=== PATIENT | female | born 1955 | race Caucasian/White ===

== ENCOUNTER 2018-07-13 04:19 | Emergency (ER) | END 2018-07-13 07:56 | disposition home or self-care (01) ==

== ENCOUNTER 2018-08-01 13:05 | Inpatient (IN) | END 2018-08-05 12:27 | disposition home health service (06) | DRG 392 ==

== ENCOUNTER → 2018-08-12 | Outpatient (CLI) | END | disposition home or self-care (01) ==

== ENCOUNTER → 2018-08-19 | Outpatient (CLI) | payer BC ==
[~2018-08-19] MED LIST: BIOT5000 PO; DOCU-216 PO; IOHEXOL 300MG/ML 150 ML BTL ONE; LEVO75TA5 PO; SENN-120 PO; SOD CHLORIDE 0.9% 100 ML ONE
== END | disposition home or self-care (01) ==
LOC: C/S 12:22
PROVIDERS: ATTEND Internal Medicine Infectious Disease
DX: K57.92 Diverticulitis of intestine, part unspecified, without perforation or abscess without bleeding (principal); D17.71 Benign lipomatous neoplasm of kidney
CPT/HCPCS: 71045; 74177; 75984; Q9967

== ENCOUNTER 2018-11-29 08:13 | Inpatient (IN) | payer BC ==
[2018-11-29] VITALS (12 sets, daily range): BP systolic 94–157; BP diastolic 42–75; PULSE 68–101; RESP 12–19; Ht 167.6 cm; Wt 62.1 kg
[~2018-11-29] VITALS: Ht 167.6 cm; Wt 62.1 kg
[~2018-11-29 08:13] MED LIST changes: +DESFLURANE 15 MIN ONE; +EPHEDrine SULFATE 50 MG/5 ML SYG ONE; -IOHEXOL 300MG/ML 150 ML BTL ONE; +PHENYLephrine (100 MCG/ML) 10ML SYG ONE; -SOD CHLORIDE 0.9% 100 ML ONE
[2018-11-29] MEDS ORDERED: LACTATED RINGER'S 1,000 ML IV SCH (10:30)
--- NOTE | 2018-11-29 11:29 | PREAC ---
Date/Time of Note Date/Time of Note DATE: 11/29/18 TIME: 11:28 Anesthesia Eval and Record Evaluation Time Pre-Procedure Interview DATE: 11/29/18 TIME: 11:28 Age 63 Sex female NPO: 8 hrs Preoperative diagnosis colon mass Planned procedure Lap colectomy Past Medical History Past Medical History: Includes Endo: Hypothyroid Surgery & Anesthesia Issues No known issue Meds Anticoagulation: No Beta Lester within 24 hr: No Reason Beta Letser not given: Pt. not on B-Lester Reported Medications Levothyroxine Sodium* (Levothyroxine Sodium*) 75 Mcg Tablet, 75 MCG PO BEFORE BREAKFAST, #30 TAB 07/13/18 Discontinued Reported Medications Biotin (Biotin) 5,000 Mcg Tab.rapdis, 5000 MCG PO DAILY 08/01/18 Discontinued Scripts Sennosides* (Senna Lax*) 8.6 Mg Tablet, 1 TAB PO DAILY, #60 TAB Prov:MICHAEL COLON 08/05/18 Docusate Sodium (Dok) 100 Mg Capsule, 100 MG PO DAILY, #60 CAP Prov:MICHAEL COLON 08/05/18 Current Medications Lactated Ringer's 1,000 ml @ 30 mls/hr Q24H IV ; Start 11/29/18 at 10:30 Meds reviewed: Yes Allergies Coded Allergies: No Known Allergy (Unverified , 11/29/18) Allergies Reviewed: Yes Labs/Studies Labs Reviewed: Reviewed by anesthesiologist Blood Bank Test 11/29/18 09:35 Antibody Screen NEGATIVE Blood Type A POSITIVE test: Negative Studies: ECG Pre-procedure Exam Last vitals Vital Signs Date Temp Pulse Resp B/P (MAP) Pulse Ox O2 O2 Flow FiO2 Time Delivery Rate 11/29/18 97.7 89 16 110/57 98 Room Air 08:59 (74) Airway: Adequate mouth opening, Adequate thyromental dist Mallampati: Mallampati II Teeth: Normal Lung: Normal Heart: Normal ASA Physical Status ASA physical status: 2 Emergency: None Planned Anesthetic General/MAC: ETT Neuraxial: Epidural Nerve block: TAP (bilateral) Planned Pain Management Epidural, Sub-arachniod narcotics Pre-operative Attestations Prior to commencing anesthesia and surgery, the patient was re-evaluated, there was verification of: *The patient's identity *The results of appropriate recent lab work and preoperative vital signs *The above evaluation not changing prior to induction *Anesthetic plan, risk benefits, alternative and complications discussed with patient/family; questions answered; patient/family understands, accepts and wishes to proceed. ALONDRA LIRIANO Nov 29, 2018 11:29
[2018-11-29] MEDS ORDERED: ONDANSETRON 4 MG INJ IV PRN ×2 (11:30→19:00)
[2018-11-29] MEDS ORDERED: ALBUTEROL 0.083% (NEB) 2.5 MG/3 ML AMP HHN PRN ×2 (11:30→19:00)
[2018-11-29] MEDS ORDERED: DIPHENHYDRAMINE 50 MG INJ IV PRN ×2 (11:30→19:00)
[2018-11-29] MEDS ORDERED: METOCLOPRAMIDE 10 MG INJ IV PRN (11:30)
[2018-11-29] MEDS ORDERED: FENTAnyl 50 MCG/ML VIAL IV PRN ×5 (11:30→19:00)
[2018-11-29] MEDS ORDERED: HYDROmorphONE 1 MG/5 ML IV SYRINGE IV PRN ×3 (11:30)
[2018-11-29] MEDS ORDERED: MEPERIDINE 25 MG INJ IV PRN (11:30)
[2018-11-29] MEDS ORDERED: MIDAZOLAM 1 MG/ML 2 ML INJ ONE (11:50)
[2018-11-29] MEDS ORDERED: ROPIVACAINE 0.2% 20 ML VIAL ONE (11:50)
--- NOTE | 2018-11-29 11:50 | HPN ---
Date/Time of Note Date/Time of Note DATE: 11/29/18 TIME: 11:49 Interval H&P Admission Note Pt. seen H&P reviewed: No system changes Stool yellowish after golytely Has martinez currently Min abdominal pain since difficulty evacuating stools SHEILA FLOYD MD Nov 29, 2018 11:50
[2018-11-29] MEDS ORDERED: PHENYLephrine (100 MCG/ML) 10ML SYG ONE (12:38)
[2018-11-29] MEDS ORDERED: metroNIDAZOLE 500 MG/NS (PMX) 100 ML IVPB ONE (12:49)
[2018-11-29] MEDS ORDERED: CEFAZOLIN 1 GM INJ ONE (12:49)
[2018-11-29] MEDS ORDERED: ROCURONIUM 50 MG INJ ONE (13:13)
[2018-11-29] MEDS ORDERED: SUCCINYLCHOLINE CHLORIDE 100 MG/5 ML SYG IV ONE (13:13)
[2018-11-29] MEDS ORDERED: PROPOFOL 20 ML ONE (13:13)
[2018-11-29] MEDS ORDERED: LIDOCAINE 100 MG SYRINGE ONE (13:13)
[2018-11-29] MEDS ORDERED: BUPIVACAINE 0.5% (SDV) 30 ML INJ ONE (13:17)
[2018-11-29] MEDS ORDERED: LIDOCAINE 1%/EPI (1:100,000) (MDV) 20 ML ONE (13:17)
[2018-11-29] MEDS ORDERED: morphine SULFATE/PF (10 MG/10 ML) INJ ONE (13:20)
[2018-11-29] MEDS ORDERED: METHYLENE BLUE 50 MG/10 ML AMPUL ONE (15:43)
[2018-11-29] MEDS ORDERED: NA BICARBONATE 8.4% 50 ML SYG ONE (16:45)
[2018-11-29] MEDS ORDERED: ALBUMIN HUMAN 5% 250 ML ONE ×2 (16:47→17:20)
[2018-11-29] MEDS ORDERED: SUGAMMADEX SODIUM 200 MG/2 ML VIAL IV ONE (17:52)
[2018-11-29] MEDS ORDERED: FLUMAZENIL 0.5 MG INJ ONE (18:17)
[2018-11-29] MEDS ORDERED: LORAZEPAM 2 MG INJ IV PRN (19:00)
[2018-11-29] MEDS ORDERED: morphine 2 MG INJ IV PRN (19:00)
[2018-11-29] MEDS ORDERED: HYDROmorphONE 0.5 MG/0.5 ML SYG IV PRN ×4 (19:00)
[2018-11-29] MEDS ORDERED: metroNIDAZOLE 500 MG/NS (PMX) 100 ML IVPB SCH (19:00)
[2018-11-29] MEDS ORDERED: IPRATROPIUM (NEB) 0.5 MG/2.5 ML AMP HHN PRN (19:00)
[2018-11-29] MEDS ORDERED: ALBUMIN HUMAN 5% 250 ML IV PRN (19:00)
[2018-11-29] MEDS ORDERED: KETOROLAC 30 MG INJ IV PRN (19:00)
[2018-11-29] MEDS ORDERED: ATROPINE 1 MG/10 ML SYRINGE IV PRN (19:00)
[2018-11-29] MEDS ORDERED: hydrALAzine 20 MG INJ IV PRN (19:00)
[2018-11-29] MEDS ORDERED: CEFAZOLIN 2 GM/50 ML (PMX) 50 ML IVPB SCH (19:00)
[2018-11-29] MEDS ORDERED: LABETALOL HCL 20MG INJ IV PRN (19:00)
[2018-11-29] MEDS ORDERED: MAGNESIUM SULFATE 2 GM/50 ML 50 ML IVPB ONE (19:30)
[2018-11-29] MEDS: D5W-0.45 NACL + KCL 20 MEQ 1,000 ML IV SCH (19:30)
[2018-11-29] MEDS: PROPOFOL 100 ML IV SCH (19:31)
--- NOTE | 2018-11-29 19:42 | OPR ---
Date/Time of Note Date/Time of Note DATE: 11/29/18 TIME: 19:24 Operative Report Free Text/Dictation Preoperative Diagnosis 1. 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 Intraoperative hypotension and decreased urine output Operation/Procedure Performed 1. Laparoscopic sigmoid colectomy 2. Laparoscopic splenic mobilization 3. Laparoscopic retroperitoneal exploration 4. Rigid sigmoidoscopy 5. Esophagogastroduodenoscopy 6. Local anesthetic injection, [address] 7. Laparoscopic guided bilateral transversus abdominis plane block Surgeon: Sheila Ortiz MD Lithograph Printer: Uyen Lyon NP Intraoperative consultation: Pepe Barros MD Anesthesia Type: general + local + regional Anesthesiologist: Eyal Khan MD Estimated Blood Loss: 300 ml's Transfusion: None Fluids: 5 L crystalloid + 500 mL's of 5% albumin Urine output: Total 350 mL's Specimen: 1. Colon with suture proximal Grafts/Implants: None Tubes/Drains: 18 [place] Jose Complications: Hypotension and decreased urine output Pt Condition Post Procedure: Guarded Disposition: ICU intubated Indications 63-year-old female with sigmoid stricture due to recurrent diverticulitis. She is having partial obstruction. She is here for sigmoid colectomy. Risks include but are not limited to bleeding, infection, abscess, seroma, leak, damage to intestines or any intra-abdominal/intrapelvic structures, hernia formation, fistula, Chronic pain, need for re-operations or further surgeries, RI, stroke, PE, DVT, pneumonia, organ failures, or even . Procedure Description: Patient was brought into the operating room, placed supine on the operating table, SCDs were placed, right arm was tucked, all pressure points were well- padded, preoperative antibiotics administered, and after induction of anesthesia, patient was placed in the lithotomy. Frye was inserted. Patient was then prepped and draped in usual sterile fashion, and timeout was performed. Incision was made in the right upper quadrant, and using an Optiview port and 5 mm 0 scope abdomen was safely entered and insufflated to 15 mmHg with CO2. There was a small penetration into the right upper quadrant retroperitoneum due to her thin status which was initially explored no active bleeding was iden tified. No other injuries were also identified. Laparoscopy was performed and no injuries were identified. Sigmoid colon and upper rectum were stuck to the lateral wall. Under direct visualization another 5 mm port was placed in the right lower quadrant a 12 mm port was placed in the right lower lateral quadrant. Eventually a 5 mm port was placed in the left abdomen. Patient was placed in Trendelenburg and left side up. Using LigaSure and scissor colon was mobilized off of the left lateral wall in the avascular plane fully mobilizing the left colon, the sigmoid and the upper rectum. The medial mesentery was opened and the left colon, sigmoid and the upper rectum beyond the peritoneal reflection going beyond the stricture posteriorly. Healthy colon proximal and distal to the were identified and subsequently transected with [place] 60 blue staplers. The mesentery was sequentially taken using LigaSure with complete hemostasis. The ureters bilaterally were fully identified and preserved throughout the operation. Suture was placed on the proximal colon. The 12 mm port site was switched to GelPort with an Rogelio medium. The resected colon was exteriorized and sent to pathology. Abdomen was reinsufflated with CO2. Mobilization of the splenic flexure was performed to allow sufficient colon to reach into the pelvis. This was done by mobilizing the left colon off of the spleen. Distal descending colon and upper rectum were approximated using 2-0 silk sutures multiple segments [id number] fashion. Colotomies were performed and [place] 60 blue load stapler was used to create an anastomosis between the 2 segments. Crotch stitch was applied. At the opening in the colon was closed with 2 firings of blue load [place] staplers. The anastomosis was widely patent. Proximal colon was clamped, rigid sigmoidoscopy was performed identifying intact staple line. Leak test was performed with saline in the pelvis with distention of the colon without any bubbles identified. Rigid sigmoidoscopy did not identify any active bleeding from the staple line. The staple line was intact. At this point patient started becoming hypotensive with decreased urine output. Our concern was if there is active bleeding. However no pooling of blood was identified. I investigated the pelvis and all 4 quadrants. There was minimal bleeding from small mucosal tear in the pelvis which was controlled with pressur e and FloSeal. The right and left gutters were investigated and no pulling of blood was identified. There is no retroperitoneal hematoma identified on either side. Mid abdomen was investigated and once again there was no retroperitoneal hematoma. Small bowel on either side was mobilized to investigate between the colon and the small bowel and no hematomas were identified. Splenic area was investigated there was some minimal oozing which was controlled with LigaSure and eventually FloSeal. There was no significant amount of blood in this area. The right upper quadrant was investigated and there was bruising into the retroperitoneum at this site. Gastrohepatic ligament was opened and the transverse colon was mobilized inferiorly. The stomach and duodenum were identified there was a small hematoma lateral to the duodenum. This area was explored irrigated there was no active bleeding. Transverse colon was mobilized superiorly and the mesentery was opened at this site to explore the retroperitoneum further no active bleeding or significant hematoma was identified. Intraoperative consultation was obtained from another general puente rgeon and he explored that these areas with me as well and agreed that there is no need for further conversion to open exploration since were able to adequately and satisfactorily explore other quadrants without identifying any bleeding. Esophagogastroduodenoscopy was performed to further investigated duodenum intraluminally. No injuries were seen. No perforation. No hematoma. Air was suctioned out from the duodenum stomach and esophagus while the EGD was removed. After aggressive fluid resuscitation and calcium administration by anesthesia patient's vitals improved. Decision was made to terminate the operation. Rogelio retractor was removed wound was irrigated and the fascial defect was closed with interrupted 0-Vicryl in a [id number] manner. Ports and CO2 were removed under direct visualization, wounds were fully irrigated, and skin was closed in subcuticular fashion using 4-0 Monocryl. The right lower quadrant incision was closed in multiple layers. After the fascial closer there was an interrupted subcutaneous 2-0 Vicryl closures followed by 4-0 Monocryl subcuticular. Dermabond was applied. All counts were correct and the end of the operation 2. Plan was to extubate patient however she was not waking up sufficiently and therefore decision was made to keep her intubated and transferred to ICU. SHEILA ORTIZ MD Nov 29, 2018 19:42
[2018-11-29] MEDS ORDERED: IOHEXOL 100 ML ONE (19:54)
[2018-11-29] MEDS ORDERED: SOD CHLORIDE 0.9% 100 ML ONE (19:54)
[2018-11-29] MEDS ORDERED: IOHEXOL 350MG/ML 50 ML BTL ONE (19:54)
--- NOTE | 2018-11-29 20:29 | OPR ---
Date/Time of Note Date/Time of Note DATE: 11/29/18 TIME: 20:25 Operative Report Free Text/Dictation Preoperative Diagnosis: Need for central venous access for IV access and better monitor Postoperative Diagnosis: Need for central venous access for IV access and better monitoring Operation Performed: 1. Right internal jugular central venous catheter insertion 2. Local anesthetic injection, 92416 3. Ultrasound guidance and interpretation Surgeon: SHEILA FLOYD MD Anesthesia: other (Local) Estimated Blood Loss: 0 - 10 ml's Specimens: None Tubes/Drains: Triple-lumen central line Complications: None Pt Condition Post Procedure: stable Disposition: ICU Indications: Patient status post surgery and hypotensive in need of improved IV access Risks, benefits, alternatives were fully reviewed with and daughter including bleeding, hematoma, damage to neurovascular bundle, damage to the lungs (pneumothorax) Damage to the heart, hemothorax, infection, DVT, PE, air embolism, pneumonia, ME, stroke, PE, arrhythmia, need for urgent procedures or operations, . Operative\Procedure Findings: Ultrasound findings: Ultrasound identified the internal jugular vein anterolateral to the carotid and compressible. Using the ultrasound the needle was directly placed into the vein under visualization and then the wire was placed which was confirmed in both transverse and longitudinal planes. Procedure Description: Patient was placed in Trendelenburg in own bed, all pressure points were well- padded, her right neck were prepped and draped in usual sterile fashion and timeout was performed. Local anesthetic was infiltrated at the right neck. Using the ultrasound the neck structures were identified. The IJ is anterolateral to the carotid. The IJ is also compressible compared to the carotid. Using the ultrasound and an 18-gauge needle, vein was accessed under direct visualization and a wire was placed. The wire placement in the IJ was confirmed using the ultrasound in longitudinal and transverse planes. Using Seldinger technique the catheter was placed over the wire into the IJ and SVC. All 3 ports easily draw back dark nonpulsatile blood and easily flushed with saline. Breath sounds and sats maintained. Postoperative chest x-ray is pending. SHEILA FLOYD MD Nov 29, 2018 20:29
--- NOTE | 2018-11-29 20:46 | PAC ---
Date/Time of Note Date/Time of Note DATE: 11/29/18 TIME: 20:46 Post-Anesthesia Notes Post-Anesthesia Note Last documented vital signs Vital Signs Date Temp Pulse Resp B/P (MAP) Pulse Ox O2 O2 Flow FiO2 Time Delivery Rate 11/29/18 98.7 19:12 11/29/18 89 16 110/57 98 Room Air 08:59 (74) Activity: WNL Respiratory function: WNL Cardiovascular function: WNL Mental status: Baseline Pain reasonably controlled: Yes Hydration appropriate: Yes Nausea/Vomiting absent: Yes ALONDRA LIRIANO Nov 29, 2018 20:46
[2018-11-29] MEDS ORDERED: FENTAnyl (DRIP) 1000 mcg/100mL 100 ML IV PRN (21:00)
--- NOTE | 2018-11-29 22:28 | HP ---
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 Please see operative report for full operative details. CT of the chest abdomen and pelvis postop shows signs of gastritis/colitis. Mild pneumoperitoneum. Patient did receive intraoperative fluids and calcium g iven patient's hypotension. At the current time patient is having adequate urine output, will continue to monitor this. Patient is noted to have bands on repeat CBC. Currently on cefazolin and metronidazole, will switch this to meropenem for broader coverage. We will also obtain blood cultures x2 though of note patient is already currently on antibiotics. We will also obtain a urinalysis. Drains in place draining serosanguinous material. #2 acute ventilatory dependent respiratory failure. Patient was lethargic postop was not able to be extubated. At the current time will maintain the p atient on ventilatory support. Serial ABGs. #3 Bandemia: Concern for possible underlying infection vs stress from surgery. Patient was restarted on antibiotics, at the current time we will switch the patient to meropenem. Blood cultures and urinalysis have been ordered. Continue to monitor for any signs of fever. #4 metabolic acidosis: Likely multifactorial secondary surgery, infection, o ther. Patient did receive IV fluid resuscitation intraoperatively. Patient does have bands as well on CBC. Currently on antibiotics. Await culture results. Optimize perfusion status. Will monitor closely. #5 normocytic anemia: No signs of any overt intraoperative bleeding. Will monitor CBC closely. Will check iron stores #6 DVT GI prophylaxis: SCDs, Protonix Further treatment strategy will be implemented as per the clinical course Greater than 45 minutes of critical care time was spent on the care and management this patient. Result Diagram: 11/29/18194811/29/181948 Results 24hrs Laboratory Tests Test 11/29/18 16:30 11/29/18 16:42 11/29/18 17:10 11/29/18 17:19 White Blood 16.2 #H Count Red Blood Count 3.76 L Hemoglobin 11.4 L Hematocrit 35.7 L Mean Corpuscular 94.9 Volume Mean Corpuscular 30.3 Hemoglobin Mean Corpuscular 31.9 L Hemoglobin Brenda nt Red Cell 12.8 Distribution Width Platelet Count 138 #L Mean Platelet 11.2 H Volume Immature 0.400 Granulocytes % Neutrophils % 81.9 H Lymphocytes % 9.9 L Monocytes % 7.2 Eosinophils % 0.2 Basophils % 0.4 Nucleated Red 0.0 Blood Cells % Immature 0.070 H Granulocytes # Neutrophils # 13.3 H Lymphocytes # 1.6 Monocytes # 1.2 H Eosinophils # 0.0 Basophils # 0.1 Nucleated Red 0.0 Blood Cells # CBC Results 1 *H Faxed/Phoned Blood Gas Blood arterial Blood arterial Specimen Source Arterial Blood 11/29/2018 4:30: 11/29/2018 5:19: Date Drawn 00 PM 59 PM Arterial Blood 7.090 *L 7.392 pH (Temp corrected) Arterial Blood 57.3 H 30.1 L pCO2 (Temp correct) Arterial Blood 508.7 H 553.1 H pO2 (Temp corrected) Arterial Blood 17.7 L 18.2 L HCO3 Arterial Blood -13.0 L -6.3 L Base Excess Arterial Blood 99.6 H 99.3 H Oxygen Saturatio n Donald Test N/A N/A Arterial Blood A-Line A-Line Gas Puncture Site Arterial 0.3 0.2 Blood Carboxyhem oglobin Arterial Blood 0.5 0.4 Methemoglobin Blood Gas A-a O2 153.4 H 134.8 H Differential Oxyhemoglobin 98.8 98.7 Percent Blood Gas 34.4 35.0 Temperature Blood Gas 10.0 25.0 Respiration Rate Blood Gas Actual 10 25 Respiration Rate Blood Gas VENT - AC VENT - AC Modality FiO2 100.0 100.0 Blood Gas Tidal 500.0 475.0 Volume Blood Gas Low 5.0 0 PEEP Setting Blood Gas DR. ORTIZ Critical Value Read Back Blood Gas Sharri Harrell Notified Whom Blood Gas 11/29/2018 4:45: 11/29/2018 5:28: Notified Time 00 PM 08 PM Sodium Level 139 Potassium Level 4.1 Chloride Level 112 H Carbon Dioxide 17 L Level Anion Gap 10 Blood Urea 11 Nitrogen Creatinine 0.62 Est Glomerular > 60 Filtrat Rate mL/min Glucose Level 95 Lactic Acid 1.4 Level Calcium Level 7.7 L Phosphorus Level 4.5 Magnesium Level 1.7 Total Bilirubin 0.2 Direct Bilirubin 0.00 Indirect 0.2 Bilirubin Aspartate Amino 21 Transf (AST/SGOT ) Alanine 32 Aminotransferase (ALT/SGPT) Alkaline 40 L Phosphatase Troponin I < 0.012 Total Protein 4.7 L Albumin 2.8 L Globulin 1.90 Albumin/Globulin 1.47 Ratio Amylase Level 52 Lipase 65 Test 11/29/18 17:45 11/29/18 19:49 Platelet Count 97 #L Prothrombin Time 15.1 H Prothrombin Time 1.2 Ratio INR 1.18 International Normalized Ratio Activated 31.5 Partial Thrombop last Time Thrombin Time 16.7 D-Dimer 2197.07 H D-Dimer Comment White Blood 9.7 # Count Red Blood Count 3.62 L Hemoglobin 10.8 L Hematocrit 34.0 L Mean Corpuscular 93.9 Volume Mean Corpuscular 29.8 Hemoglobin Mean Corpuscular 31.8 L Hemoglobin Brenda nt Red Cell 12.8 Distribution Width Mean Platelet 10.6 H Volume Immature 0.300 Granulocytes % Neutrophils % Segmented 79 H Neutrophils % (Manual) Band Neutrophils 13 H % (Manual) Lymphocytes % Lymphocytes % 4 L (Manual) Reactive 1 H Lymphocytes % (Manual) Monocytes % Monocytes % 3 (Manual) Eosinophils % Basophils % Nucleated Red 0.0 Blood Cells % Immature 0.030 Granulocytes # Neutrophils # Neutrophils # 7.8 H (Manual) Band Neutrophils 1.2 H # Lymphocytes 0.3 L (Manual) Lymphocytes # Reactive 0.0 Lymphocytes # Monocytes # Monocytes # 0.2 L (Manual) Eosinophils # Basophils # Nucleated Red Blood Cells # Platelet DECREASED Estimate Sodium Level 139 Potassium Level 4.0 Chloride Level 111 H Carbon Dioxide 17 L Level Anion Gap 11 Blood Urea 10 Nitrogen Creatinine 0.62 Est Glomerular > 60 Filtrat Rate mL/min Glucose Level 125 Calcium Level 8.9 Total Bilirubin 0.4 Direct Bilirubin 0.00 Indirect 0.4 Bilirubin Aspartate Amino 24 Transf (AST/SGOT ) Alanine 20 Aminotransferase (ALT/SGPT) Alkaline 43 Phosphatase Total Protein 5.3 L Albumin 3.3 Globulin 2.00 Albumin/Globulin 1.65 Ratio HPI/ROS Admit Date/Time Admit Date/Time Nov 29, 2018 at 08:13 Hx of Present Illness Chief complaint: Elective sigmoid colectomy The following history was obtained from the general surgeon, the RN, and from the patient's electronic medical record as I was not able to get history from t he patient as she was intubated. This is a 63-year-old female who was brought in on an elective basis to have a laparoscopic sigmoid colectomy given her history of sigmoid stricture secondary to recurrent diverticulitis. Patient was taken to the operating room by the general surgeon Dr. Ortiz and had a laparoscopic sigmoid colectomy, laparoscopic splenic mobilization, laparoscopic retroperitoneal exploration, esophageal gastroduodenoscopy. Please see the operative report for full details. During the procedure the patient was noted to be hypotensive and had decreased urine output. Patient did receive intraoperative fluids as well as calcium. Exploration during the surgery did not show any signs of major bleeding. Again please see the report for further details. Patient currently r emains intubated postoperatively. She does have a central line. She has produced approximately 300 cc of dilute urine postoperatively. She is currently on cefazolin as well as metronidazole. Allergies: NKDA medications: Levothyroxine ROS Subjective hx not possible: pt critical status (intubated) PMH/Family/Social Past Medical History Recurrent diverticulitis, hypothyroidism, unable to obtain further history given patient critical status Medications Current Medications Lactated Ringer's 1,000 ml @ 30 mls/hr Q24H IV ; Start 11/29/18 at 10:30 Morphine Sulfate (morphine) 2 mg ICU RECOVERY PRN IV .MILD PAIN LEVEL 1-3; Start 11/29/18 at 19:00; Stop 11/30/18 at 01:00 Hydromorphone HCl (Dilaudid) 0.2 mg ICU RECOVERY PRN IV MILD PAIN LEVEL 1-3; Start 11/29/18 at 19:00; Stop 11/30/18 at 01:00 Hydromorphone HCl (Dilaudid) 0.4 mg ICU RECOVERY PRN IV MODERATE PAIN LEVEL 4-6; Start 11/29/18 at 19:00; Stop 11/30/18 at 01:00 Hydromorphone HCl (Dilaudid) 0.6 mg ICU RECOVERY PRN IV SEVERE PAIN LEVEL 7-10; Start 11/29/18 at 19:00; Stop 11/30/18 at 01:00 Fentanyl (Sublimaze) 25 mcg ICU RECOVERY PRN IV MILD PAIN LEVEL 1-3; Start 11/29/18 at 19:00; Stop 11/30/18 at 01:00 Fentanyl (Sublimaze) 50 mcg ICU RECOVERY PRN IV MODERATE PAIN LEVEL 4-6; Start 11/29/18 at 19:00; Stop 11/30/18 at 01:00 Fentanyl (Sublimaze) 75 mcg ICU RECOVERY PRN IV SEVERE PAIN LEVEL 7-10; Start 11/29/18 at 19:00; Stop 11/30/18 at 01:00 Ketorolac Tromethamine (Toradol) 30 mg ICU RECOVERY PRN IV FOR PAIN AFTER IV NARCOTIC MED; Start 11/29/18 at 19:00; Stop 11/30/18 at 01:00 Ondansetron HCl (Zofran Inj) 4 mg ICU RECOVERY PRN IV NAUSEA/VOMITING; Start 11/29/18 at 19:00; Stop 11/30/18 at 01:00 Labetalol HCl (Labetalol) 5 mg ICU RECOVERY PRN IV HIGH BLOOD PRESSURE; Start 11/29/18 at 19:00; Stop 11/30/18 at 01:00 Hydralazine HCl (Apresoline) 5 mg ICU RECOVERY PRN IV HIGH BLOOD PRESSURE; Star t 11/29/18 at 19:00; Stop 11/30/18 at 01:00 Albumin Human 250 ml @ 750 mls/hr ICU RECOVERY PRN IV BLOOD PRESSURE SUPPORT; Start 11/29/18 at 19:00; Stop 11/30/18 at 01:00 Atropine Sulfate (Atropine (Syringe)) 1 mg ICU RECOVERY PRN IV DECREASED HEART RATE; Start 11/29/18 at 19:00; Stop 11/30/18 at 01:00 Albuterol (Proventil 0.083% (Neb)) 2.5 mg ICU RECOVERY PRN HHN .WHEEZING; Start 11/29/18 at 19:00; Stop 11/30/18 at 01:00 Ipratropium [place] (Atrovent 0.02% (Neb)) 0.5 mg ICU RECOVERY PRN HHN .WHE EZING; Start 11/29/18 at 19:00; Stop 11/30/18 at 01:00 Diphenhydramine HCl (Benadryl) 25 mg ICU RECOVERY PRN IV .PRURITUS; Start 11/29/18 at 19:00; Stop 11/30/18 at 01:00 Lorazepam (Ativan) 1 mg ICU RECOVERY PRN IV .ANXIETY; Start 11/29/18 at 19:00; Stop 11/30/18 at 01:00 Propofol 100 ml @ 1.863 mls/ hr Q12H IV Last administered on 11/29/18at 19:31; Admin Dose 1.863 MLS/HR; Start 11/29/18 at 19:30 Cefazolin Sodium/ Dextrose 50 ml @ 100 mls/hr Q8H IVPB Last administered on 11/29/18at 20:42; Admin Dose 100 MLS/HR; Start 11/29/18 at 19:00; Stop 11/30/18 at 18:59 Metronidazole 100 ml @ 100 mls/hr Q8H IVPB Last administered on 11/29/18at 20:43; Admin Dose 100 MLS/HR; Start 11/29/18 at 19:00; Stop 11/30/18 at 18:59 Hydromorphone HCl (Dilaudid) 0.5 mg Q2H PRN IV PAIN LEVEL 1-5; Start 11/29/18 at 19:00 Ondansetron HCl (Zofran Inj) 4 mg Q6H PRN IV NAUSEA AND/OR VOMITING; Start 11/29/18 at 19:00 Pantoprazole (Protonix Iv) 40 mg DAILY@06 IV ; Start 11/30/18 at 06:00 Potassium Chloride/Dextrose/ Sod Cl 1,000 ml @ 100 mls/hr Q10H IV ; Start 11/29/18 at 18:56 Hydromorphone HCl (Dilaudid) 1 mg Q2H PRN IV pain 6-10; Start 11/29/18 at 19:00 Fentanyl 100 ml @ 2.5 mls/hr TITRATE PRN IV RASS -2 TO -3 Last administered on 11/29/18at 21:54; Admin Dose 2.5 MLS/HR; Start 11/29/18 at 21:00 Coded Allergies: No Known Allergy (Unverified , 11/29/18) Past Surgical History Postop sigmoid colectomy, unable to obtain further history given patient critical status Family History Significant Family History: no pertinent family hx Social History unable to obtain further history given patient critical status Smoking Status: Never smoker Exam/Review of Systems Vital Signs Vitals Vital Signs Date Temp Pulse Resp B/P (MAP) Pulse Ox O2 O2 Flow FiO2 Time Delivery Rate 11/29/18 91 17 100 40 21:49 11/29/18 98.7 19:12 11/29/18 110/57 Room Air 08:59 (74) Exam Exam General: Intubated, sedated HEENT: Atraumatic, normocephalic. The pupils are equal, round and reactive to light. Neck: Supple with full range of motion. No rigidity or meningismus Chest: Nontender Lungs: Clear to auscultation bilaterally no crackles rales or wheezing Heart: Normal S1-S2, Regular rhythm and rate. No murmur, S3, or S4 Abdomen: Soft , nontender, nondistended , bowel sounds are present. No guarding no rebound tenderness , No masses or organomegaly. No costovertebral temporal angle mass Genitourinary: Frye catheter with approximately 300 cc of dilute urine Extremities: Normal to inspection, no edema no cyanosis Neurologic: Intubated, currently sedated. Further neurological examination limited given patient's sedation Additional Comments PROCEDURE: CT Abdomen and pelvis with contrast. CLINICAL INDICATION: Abdominal pain, intraoperative hypotension. TECHNIQUE: CT scan of the abdomen and pelvis with contrast was performed on a multi-detector high-resolution CT scanner. The patient was scanned following the uncomplicated administration of 60 cc of Omnipaque 350 intravenous contrast. Coronal and sagittal reformatted images were obtained from the axial source images. Images were reviewed on a high-resolution PACS workstation. DICOM images are available. One or more of the following dose reduction techniques were used: - Automated exposure control. - Adjustment of the mA and/or kV according to patient size. - Use of iterative reconstruction technique. Exam CTD/vol = 12.11 mGy. Total exam DLP = 746.74 mGy-cm. COMPARISON: 08/19/2018. FINDINGS: Evaluation of the lung bases demonstrates mild bibasilar atelectasis and small pleural effusions. There is moderate interstitial emphysema within bilateral chest and abdominal wall and extending to the pelvis. There is a nasogastric tube extending to the stomach. Abdomen: The liver is normal in size. There is no focal mass or dilatation of the biliary tree. There is mild periportal edema. The gallbladder is not distended. The spleen, pancreas and bilateral adrenal glands are within normal limits. Bilateral kidneys are normal in size with symmetric enhancement. There is a fat containing lesion within the posterior mid right kidney measuring 1.6 x 1.1 cm. There is a fat containing lesion within the lower pole of the left kidney measuring 0.5 cm. There is no hydronephrosis or hydroureter. There is no retroperitoneal adenopathy. The abdominal aorta is of normal caliber with mild scattered atherosclerotic calcifications. There is mild pneumoperitoneum consistent with recent surgery. There is diffuse intra-abdominal stranding and mild free fluid. There is a left-sided drainage catheter extending to the right abdomen. There is mild diffuse thickening of the stomach, small bowel and large bowel. The patient is status post sigmoidectomy with anastomotic sutures seen within the left lower quadrant. There is no bowel obstruction. A normal appendix is identified. There is no diverticulosis or diverticulitis. Pelvis: The bladder contains a Frye catheter. The uterus and adnexa are within normal limits. There is moderate stranding and mild free fluid. There is no significant pelvic adenopathy. Evaluation of the osseous structures demonstrates no suspicious lytic or blastic lesion. IMPRESSION: Moderate diffuse interstitial emphysema throughout the chest, abdomen and pelv is. Mild diffuse thickening of the stomach, small bowel and large bowel represent a nonspecific gastritis and enterocolitis. Diffuse intra-abdominal stranding and mild free fluid. Moderate pelvic stranding and mild free fluid. Mild pneumoperitoneum consistent with recent surgery. Left-sided drainage catheter extending to the right abdomen. Mild bibasilar atelectasis and small pleural effusions. Bilateral small renal angiomyolipomas. Mild vascular calcification reflective of atherosclerosis. A call report was made to Dr. Ortiz at 09:55 p.m. .Todd Sampson MD, MD Date Time Electronically viewed and signed by .Todd Sampson MD, MD on 11/29/2018 22:08 .T/ CC: SHEILA ORTIZ MD [id number] PROCEDURE: CT angiogram of the chest with contrast. CLINICAL INDICATION: Chest pain, elevated D-dimer. TECHNIQUE: CT angiogram of the chest was obtained using a multi-detector high-resolution CT. Contiguous axial images were obtained during the dynamic injection of 90 cc of Omnipaque 350 intravenous contrast. Coronal and sagittal reformatted images were obtained. 3-D reformatted images were also obtained. Images were reviewed on a PACS workstation. DICOM images are available. One or more of the following dose reduction techniques were used: - Automated exposure control. - Adjustment of the mA and/or kV according to patient size. - Use of iterative reconstruction technique. Exam CTD/vol = 9.51 mGy. Total exam DLP = 355.04 mGy-cm. COMPARISON: None. FINDINGS: The main pulmonary artery followed to the segmental divisions are well opacified. There is no filling defect or evidence of pulmonary embolism. The heart is normal in size. There is no pericardial thickening or effusion. The aorta is of normal course and caliber without evidence of aneurysm or dissection. There is an endotracheal tube 8.5 cm above the tamiko. There is a nasogastric tube extending to the stomach. There is a right IJ central venous catheter extending to the SVC. There are is moderate interstitial emphysema within bilateral lower neck and chest wall extending to the upper abdomen. The visualized thyroid is unremarkable. There are no enlarged axillary lymph nodes. There are no enlarged mediastinal or hilar lymph nodes by CT criteria. There is mild bibasilar atelectasis and small pleural effusions. There is no pneumothorax. Limited evaluation of the upper abdomen demonstrates mild free air within the right upper abdomen. IMPRESSION: No evidence of pulmonary embolism or aortic dissection. Extensive interstitial emphysema within bilateral lower neck and chest wall extending to the upper abdomen. Mild bibasilar atelectasis and small pleural effusions. Superiorly positioned endotracheal tube. Further advancement by 4 cm is recommended. Mild pneumoperitoneum consistent with recent surgery. Please refer to CT abdomen and pelvis done same day for further details. A call report was made to Dr. Ortiz at 09:55 p.m. .Todd Sampson MD, MD Date Time Electronically viewed and signed by .Todd Sampson MD, MD on 11/29/2018 21:58 .T/ CC: SHEILA ORTIZ MD [id number] PROCEDURE: XR Chest. CLINICAL INDICATION: Ng tube placement TECHNIQUE: Single portable view of the chest was obtained COMPARISON: 08/19/2018 FINDINGS: There is a NG tube within the stomach. Heart mediastinum are unremarkable. Visualized lungs are clear. Bilateral chest and abdominal wall subcutaneous emphysema. IMPRESSION: New NG tube within the stomach Bilateral chest and abdominal wall subcutaneous emphysema. RPTAT: [facility] Physician [place] Date Time Electronically viewed and signed by Carlos Enrique Zayas Physician on 11/29/2018 20:52 ME/ CC: SHEILA ORTIZ MD [id number] PROCEDURE: XR Chest. CLINICAL INDICATION: Line placement TECHNIQUE: Single portable view of the chest was obtained COMPARISON: Today FINDINGS: Right central line tip overlies the SVC/RA junction. Heart, mediastinum and lungs are unchanged. No acute osseous abnormality. IMPRESSION: No pneumothorax. New line in satisfactory position. Stable subcutaneous emphysema in the bilateral chest and abdomen. RPTAT: [facility] Physician [place] Date Time Electronically viewed and signed by Carlos Enrique Zayas Physician on 11/29/2018 21:33 ME/ CC: MARISOL PÉREZ MD, [facility] [phone] [address] Nov 29, 2018 22:28
[2018-11-29] MEDS: ALBUMIN HUMAN 25% 100 ML IV SCH ×2 (23:00→23:57)
[2018-11-29] MEDS: MEROPENEM 1 GM/50ML(PMX) 50 ML IVPB SCH (23:55)
[2018-11-30] VITALS (71 sets, daily range): BP systolic 36–130; BP diastolic 26–68; PULSE 69–103; RESP 12–26
[2018-11-30] MEDS: PROPOFOL 100 ML IV SCH (00:20)
[2018-11-30] MEDS ORDERED: SOD CHLORIDE 0.9% 1,000 ML IV ONE ×2 (02:30→07:00)
[2018-11-30] MEDS: D5W-0.45 NACL + KCL 20 MEQ 1,000 ML IV SCH ×2 (04:56→13:28)
[2018-11-30] MEDS: MEROPENEM 1 GM/50ML(PMX) 50 ML IVPB SCH ×3 (05:41→22:19)
[2018-11-30] MEDS: LEVOTHYROXINE 100 MCG VIAL IV SCH (05:41)
[2018-11-30] MEDS: PANTOPRAZOLE 40 MG INJ IV SCH (05:41)
--- NOTE | 2018-11-30 09:40 | PN ---
Date/Time of Note Date/Time of Note DATE: 11/30/18 TIME: 09:33 Assessment/Plan VTE Prophylaxis Risk score (from Ns)>0 risk: 7 SCD applied (from [facility] [place] Yes Pharmacological prophylaxis: NA/contraindicated Pharm contraindication: surgical contra Lines/Catheters IV C[facility]ter Type (from [facility] Central Line Central line still needed: Yes Urinary Cath still in place: Yes Reason Cath still needed: other (indicate) (intubated) Assessment/Plan Assessment/Plan 63 yo woman with history of hypothyroidism and recurrent diverticulitis admitted after scheduled sigmoid colectomy. 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 Please see operative report for full operative details. - CT of the chest abdomen and pelvis postop shows signs of gastritis/colitis. Mild pneumoperitoneum which is expected. - Patient did receive intraoperative fluids and calcium given patient's hypotension, now normotensive off pressors. - Currently on postoperative meropenem. # acute ventilatory dependent respiratory failure. - Patient was lethargic postop was not able to be extubated. - Now awake breathing well; anticipate extubation later today. # Bandemia: - Expected stress response after major surgery - Currently on postoperative antibiotics. # normocytic anemia: No signs of any overt intraoperative bleeding. Will monitor CBC closely. Will check iron stores # DVT GI prophylaxis: SCDs, Protonix Greater than 45 minutes of critical care time was spent on the care and management this patient. Result Diagram: 11/30/18 0430 11/30/18 0430 Subjective 24 Hr Interval Summary Free Text/Dictation No acute overnight events. This morning, patient is intubated off sedation, breathing well on CPAP trial. Also off pressors. at bedside, discussed plan of care with him. Exam/Review of Systems Exam Vitals Vital Signs Date Temp Pulse Resp B/P (MAP) Pulse Ox O2 O2 Flow FiO2 Time Delivery Rate 11/30/18 74 08:00 11/30/18 16 85/51 (62) 100 Room Air 07:00 11/30/18 40 05:22 11/30/18 97.2 04:00 Intake and Output 11/29/18 11/29/18 11/30/18 1515:00 23:00 07:00 IntakeIntake Total 5964.626 ml 925.3 ml OutputOutput Total 1510 ml 840 ml BalanceBalance 4454.626 ml 85.3 ml Exam General: Thin woman well developed intubated in no acute distress. HEENT: Atraumatic, normocephalic. The pupils are equal, round and reactive to light. Neck: Supple with full range of motion. No rigidity or meningismus Chest: Nontender Lungs: Mechanical breath sounds equal bilaterally. Heart: Normal S1-S2, Regular rhythm and rate. No murmur, S3, or S4 Abdomen: Midline lap incisions clean and dry. Very tender to mild palpation. Nondistended. Genitourinary: Frye catheter with clear yellow urine Extremities: Normal to inspection, no edema no cyanosis Neurologic: Intubated; but awake, alert, moving all extremities, following commands. Slow deep breaths on ventilator. Results Results 24hrs Laboratory Tests Test 11/29/18 16:30 11/29/18 16:42 11/29/18 17:10 11/29/18 17:19 White Blood 16.2 #H Count Red Blood Count 3.76 L Hemoglobin 11.4 L Hematocrit 35.7 L Mean 94.9 Corpuscular Volume Mean 30.3 Corpuscular Hemoglobin Mean 31.9 L Corpuscular Hemoglobin Conc ent Red Cell 12.8 Distribution Width Platelet Count 138 #L Mean Platelet 11.2 H Volume Immature 0.400 Granulocytes % Neutrophils % 81.9 H Lymphocytes % 9.9 L Monocytes % 7.2 Eosinophils % 0.2 Basophils % 0.4 Nucleated Red 0.0 Blood Cells % Immature 0.070 H Granulocytes # Neutrophils # 13.3 H Lymphocytes # 1.6 Monocytes # 1.2 H Eosinophils # 0.0 Basophils # 0.1 Nucleated Red 0.0 Blood Cells # CBC Results 1 *H Faxed/Phoned Blood Gas Blood arterial Blood Specimen arterial Source Arterial Blood 11/29/2018 4:30: 11/29/2018 5:19 Date Drawn 00 PM :59 PM Arterial Blood 7.090 *L 7.392 pH (Temp corrected ) Arterial Blood 57.3 H 30.1 L pCO2 (Temp correct) Arterial Blood 508.7 H 553.1 H pO2 (Temp corrected ) Arterial Blood 17.7 L 18.2 L HCO3 Arterial Blood -13.0 L -6.3 L Base Excess Arterial Blood 99.6 H 99.3 H Oxygen Saturati on Donald Test N/A N/A Arterial Blood A-Line A-Line Gas Puncture Site Arterial 0.3 0.2 Blood Carboxyhe moglobin Arterial Blood 0.5 0.4 Methemoglobin Blood Gas A-a 153.4 H 134.8 H O2 Differential Oxyhemoglobin 98.8 98.7 Percent Blood Gas 34.4 35.0 Temperature Blood Gas 10.0 25.0 Respiration Rate Blood Gas 10 25 Actual Respiration Rat e Blood Gas VENT - AC VENT - AC Modality FiO2 100.0 100.0 Blood Gas Tidal 500.0 475.0 Volume Blood Gas Low 5.0 0 PEEP Setting Blood Gas DR. FLOYD Critical Value Read Back Blood Gas Sharri Harrell Notified Whom Blood Gas 11/29/2018 4:45: 11/29/2018 5:28 Notified Time 00 PM :08 PM Sodium Level 139 Potassium Level 4.1 Chloride Level 112 H Carbon Dioxide 17 L Level Anion Gap 10 Blood Urea 11 Nitrogen Creatinine 0.62 Est Glomerular > 60 Filtrat Rate mL/min Glucose Level 95 Lactic Acid 1.4 Level Calcium Level 7.7 L Phosphorus 4.5 Level Magnesium Level 1.7 Total Bilirubin 0.2 Direct 0.00 Bilirubin Indirect 0.2 Bilirubin Aspartate Amino 21 Transf (AST/SGO T) Alanine 32 Aminotransferas e (ALT/SGPT) Alkaline 40 L Phosphatase Troponin I < 0.012 Total Protein 4.7 L Albumin 2.8 L Globulin 1.90 Albumin/Globuli 1.47 n Ratio Amylase Level 52 Lipase 65 Test 11/29/18 17:45 11/29/18 19:49 11/29/18 22:17 11/29/18 23:33 Platelet Count 97 #L Prothrombin 15.1 H Time Prothrombin 1.2 Time Ratio INR 1.18 International Normalized Rati o Activated 31.5 Partial Thrombo plast Time Thrombin Time 16.7 D-Dimer 2197.07 H D-Dimer Comment White Blood 9.7 # Count Red Blood Count 3.62 L Hemoglobin 10.8 L 10.5 L Hematocrit 34.0 L 32.4 L Mean 93.9 Corpuscular Volume Mean 29.8 Corpuscular Hemoglobin Mean 31.8 L Corpuscular Hemoglobin Conc ent Red Cell 12.8 Distribution Width Mean Platelet 10.6 H Volume Immature 0.300 Granulocytes % Neutrophils % Segmented 79 H Neutrophils % (Manual) Band 13 H Neutrophils % (Manual) Lymphocytes % Lymphocytes % 4 L (Manual) Reactive 1 H Lymphocytes % (Manual) Monocytes % Monocytes % 3 (Manual) Eosinophils % Basophils % Nucleated Red 0.0 Blood Cells % Immature 0.030 Granulocytes # Neutrophils # Neutrophils # 7.8 H (Manual) Band 1.2 H Neutrophils # Lymphocytes 0.3 L (Manual) Lymphocytes # Reactive 0.0 Lymphocytes # Monocytes # Monocytes # 0.2 L (Manual) Eosinophils # Basophils # Nucleated Red Blood Cells # Platelet DECREASED Estimate Sodium Level 139 Potassium Level 4.0 Chloride Level 111 H Carbon Dioxide 17 L Level Anion Gap 11 Blood Urea 10 Nitrogen Creatinine 0.62 Est Glomerular > 60 Filtrat Rate mL/min Glucose Level 125 Calcium Level 8.9 Total Bilirubin 0.4 Direct 0.00 Bilirubin Indirect 0.4 Bilirubin Aspartate Amino 24 Transf (AST/SGO T) Alanine 20 Aminotransferas e (ALT/SGPT) Alkaline 43 Phosphatase Total Protein 5.3 L Albumin 3.3 Globulin 2.00 Albumin/Globuli 1.65 n Ratio Blood Gas Blood Specimen arterial Source Arterial Blood 11/29/2018 8:38 Date Drawn :12 PM Arterial Blood 7.223 *L pH (Temp corrected ) Arterial Blood 44.7 pCO2 (Temp correct) Arterial Blood 504.9 H pO2 (Temp corrected ) Arterial Blood 18.0 L HCO3 Arterial Blood -9.3 L Base Excess Arterial Blood 99.3 H Oxygen Saturati on Donald Test N/A Arterial Blood A-Line Gas Puncture Site Arterial 0.1 Blood Carboxyhe moglobin Arterial Blood 0.4 Methemoglobin Blood Gas A-a 163.4 H O2 Differential Oxyhemoglobin 98.8 Percent Blood Gas 37.0 Temperature Blood Gas 12.0 Respiration Rate Blood Gas 12 Actual Respiration Rat e Blood Gas VENT - AC Modality FiO2 100.0 Blood Gas Tidal 470.0 Volume Blood Gas Low 5.0 PEEP Setting Blood Gas N [facility] Critical Value Read Back Blood Gas Robert [facility] Notified Whom Blood Gas 11/29/2018 8:44 Notified Time :48 PM Test 11/30/18 00:15 11/30/18 00:19 11/30/18 04:30 11/30/18 05:00 Urine Color STRAW Urine Clarity CLEAR Urine pH 5.0 Urine Specific 1.059 H [place] Urine Ketones 2+ H Urine Nitrite NEGATIVE Urine Bilirubin NEGATIVE Urine NEGATIVE Urobilinogen Urine Leukocyte NEGATIVE Esterase Urine 9 H Microscopic RBC Urine 1 Microscopic WBC Urine Mucus FEW A Urine 2+ H Hemoglobin Urine Glucose 1+ H Urine Total NEGATIVE Protein Troponin I < 0.012 < 0.012 White Blood 7.4 # Count Red Blood Count 3.13 L Hemoglobin 9.6 L Hematocrit 28.3 L Mean 90.4 Corpuscular Volume Mean 30.7 Corpuscular Hemoglobin Mean 33.9 Corpuscular Hemoglobin Conc ent Red Cell 12.8 Distribution Width Platelet Count 108 L Mean Platelet 10.9 H Volume Immature 0.400 Granulocytes % Neutrophils % 88.9 H Lymphocytes % 5.0 L Monocytes % 5.4 Eosinophils % 0.0 Basophils % 0.3 Nucleated Red 0.0 Blood Cells % Immature 0.030 Granulocytes # Neutrophils # 6.6 Lymphocytes # 0.4 L Monocytes # 0.4 Eosinophils # 0.0 Basophils # 0.0 Nucleated Red 0.0 Blood Cells # Sodium Level 137 Potassium Level 4.4 Chloride Level 107 Carbon Dioxide 21 Level Anion Gap 9 Blood Urea 9 Nitrogen Creatinine 0.57 Est Glomerular > 60 Filtrat Rate mL/min Glucose Level 212 Lactic Acid 2.4 *H Level Calcium Level 8.5 Total Bilirubin 0.2 Direct 0.00 Bilirubin Indirect 0.2 Bilirubin Aspartate Amino 22 Transf (AST/SGO T) Alanine 24 Aminotransferas e (ALT/SGPT) Alkaline 28 L Phosphatase Total Protein 4.8 L Albumin 2.9 L Globulin 1.90 Albumin/Globuli 1.52 n Ratio Amylase Level 49 Lipase 39 Blood Gas Blood Specimen arterial Source Arterial Blood 11/30/2018 4:45 Date Drawn :37 AM Arterial Blood 7.404 pH (Temp corrected ) Arterial Blood 33.0 L pCO2 (Temp correct) Arterial Blood 188.9 H pO2 (Temp corrected ) Arterial Blood 20.2 L HCO3 Arterial Blood -3.9 L Base Excess Arterial Blood 98.5 H Oxygen Saturati on Donald Test N/A Arterial Blood A-Line Gas Puncture Site Arterial 0.1 Blood Carboxyhe moglobin Arterial Blood 0.5 Methemoglobin Blood Gas A-a 58.4 H O2 Differential Oxyhemoglobin 97.9 Percent Blood Gas 37.0 Temperature Blood Gas 16.0 Respiration Rate Blood Gas 16 Actual Respiration Rat e Blood Gas VENT - AC Modality FiO2 40.0 Blood Gas Tidal 470.0 Volume Blood Gas Low 5.0 PEEP Setting Blood Gas [facility] Notified Whom Blood Gas 11/30/2018 4:54 Notified Time :39 AM Test 11/30/18 05:09 Lab Scanned REFERENCE LAB Report Medications Medication Current Medications Lactated Ringer's 1,000 ml @ 30 mls/hr Q24H IV ; Start 11/29/18 at 10:30 Propofol 100 ml @ 1.863 mls/ hr Q12H IV Last administered on 11/30/18at 00:20; Admin Dose 7.452 MLS/HR; Start 11/29/18 at 19:30 Hydromorphone HCl (Dilaudid) 0.5 mg Q2H PRN IV PAIN LEVEL 1-5; Start 11/29/18 at 19:00 Ondansetron HCl (Zofran Inj) 4 mg Q6H PRN IV NAUSEA AND/OR VOMITING; Start 11/29/18 at 19:00 Pantoprazole (Protonix Iv) 40 mg DAILY@06 IV Last administered on 11/30/18at 0 5:41; Admin Dose 40 MG; Start 11/30/18 at 06:00 Potassium Chloride/Dextrose/ Sod Cl 1,000 ml @ 100 mls/hr Q10H IV Last administered on 11/29/18at 19:30; Admin Dose 100 MLS/HR; Start 11/29/18 at 18:56 Hydromorphone HCl (Dilaudid) 1 mg Q2H PRN IV pain 6-10; Start 11/29/18 at 19:00 Fentanyl 100 ml @ 2.5 mls/hr TITRATE PRN IV RASS -2 TO -3 Last administered on 11/29/18at 21:54; Admin Dose 2.5 MLS/HR; Start 11/29/18 at 21:00 Levothyroxine Sodium (Synthroid Iv) 37.5 mcg DAILY@06 IV Last administered on 11/30/18at 05:41; Admin Dose 37.5 MCG; Start 11/30/18 at 06:00 Meropenem/Sodium Chloride 50 ml @ 100 mls/hr Q8 IVPB Last administered on 11/30/18at 05:41; Admin Dose 100 MLS/HR; Start 11/29/18 at 23:00 LAURA SWANSON MD Nov 30, 2018 09:40
--- NOTE | 2018-11-30 09:46 | CONS ---
Assessment/Plan Assessment/Plan Assessment/Plan (Daily) Chest x-ray is totally clear. Patient is currently on CPAP pressure support of 10, 30% FiO2. Assessment and recommendations; 1. Patient admitted for elective sigmoid colon resection With postop mechanical ventilation requirement. Medically stable now. Extubated the patient. Continue current supportive care. Further recommendations per general surgeon. 35 minutes of critical care time was spent evaluating the patient. Consultation Date/Type/Reason Admit Date/Time Nov 29, 2018 at 08:13 Date of Consultation: Nov 30, 2018 Type of Consult Pulmonary/critical care Patient is a 63-year-old lady who was admitted for elective laparoscopic sigmoid colon resection due to diverticulitis. Surgery was uneventful yesterday except for mild hypotensive episode, patient could not be extubated immediately postoperatively and was transferred to ICU intubated. By the time I saw her, patient already on CPAP mode and appears completely awake and alert. Patient has remained hemodynamically stable. She complains of minimal abdominal discomfort and pain. Denies any shortness of breath. Any nausea. Past medical history; unremarkable Medications; reviewed Allergies; none Social history; noncontributory. Family history; she is , has a supportive . Occupational history; noncontributory. Review of systems; limited review of system could be obtained. Patient denies any chest pain, shortness of breath, coughing, complains of very mild abdominal pain and discomfort. Denies any nausea. General exam; elderly female, orally intubated, awake and alert. Currently in no distress. Date/Time of Note DATE: 11/30/18 TIME: 09:43 Past Medical History Home Meds Reported Medications Levothyroxine Sodium* (Levothyroxine Sodium*) 75 Mcg Tablet, 75 MCG PO BEFORE BREAKFAST, #30 TAB 07/13/18 Discontinued Reported Medications Biotin (Biotin) 5,000 Mcg Tab.rapdis, 5000 MCG PO DAILY 08/01/18 Discontinued Scripts Sennosides* (Senna Lax*) 8.6 Mg Tablet, 1 TAB PO DAILY, #60 TAB Prov:MICHAEL COLON 08/05/18 Docusate Sodium (Dok) 100 Mg Capsule, 100 MG PO DAILY, #60 CAP Prov:MICHAEL COLON 08/05/18 Medications Current Medications Lactated Ringer's 1,000 ml @ 30 mls/hr Q24H IV ; Start 11/29/18 at 10:30 Propofol 100 ml @ 1.863 mls/ hr Q12H IV Last administered on 11/30/18at 00:20; Admin Dose 7.452 MLS/HR; Start 11/29/18 at 19:30 Hydromorphone HCl (Dilaudid) 0.5 mg Q2H PRN IV PAIN LEVEL 1-5; Start 11/29/18 at 19:00 Ondansetron HCl (Zofran Inj) 4 mg Q6H PRN IV NAUSEA AND/OR VOMITING; Start 11/29/18 at 19:00 Pantoprazole (Protonix Iv) 40 mg DAILY@06 IV Last administered on 11/30/18at 05:41; Admin Dose 40 MG; Start 11/30/18 at 06:00 Potassium Chloride/Dextrose/ Sod Cl 1,000 ml @ 100 mls/hr Q10H IV Last administered on 11/29/18at 19:30; Admin Dose 100 MLS/HR; Start 11/29/18 at 18:56 Hydromorphone HCl (Dilaudid) 1 mg Q2H PRN IV pain 6-10; Start 11/29/18 at 19:00 Fentanyl 100 ml @ 2.5 mls/hr TITRATE PRN IV RASS -2 TO -3 Last administered on 11/29/18at 21:54; Admin Dose 2.5 MLS/HR; Start 11/29/18 at 21:00 Levothyroxine Sodium (Synthroid Iv) 37.5 mcg DAILY@06 IV Last administered on 11/30/18at 05:41; Admin Dose 37.5 MCG; Start 11/30/18 at 06:00 Meropenem/Sodium Chloride 50 ml @ 100 mls/hr Q8 IVPB Last administered on 11/30/18at 05:41; Admin Dose 100 MLS/HR; Start 11/29/18 at 23:00 Allergies: Coded Allergies: No Known Allergy (Unverified , 11/29/18) Social History Smoking Status: Never smoker Exam/Review of Systems Exam Vitals Vital Signs Date Temp Pulse Resp B/P (MAP) Pulse Ox O2 O2 Flow FiO2 Time Delivery Rate 11/30/18 74 08:00 11/30/18 16 85/51 (62) 100 Room Air 07:00 11/30/18 40 05:22 11/30/18 97.2 04:00 Intake and Output 11/29/18 11/29/18 11/30/18 1515:00 23:00 07:00 IntakeIntake Total 5964.626 ml 925.3 ml OutputOutput Total 1510 ml 840 ml BalanceBalance 4454.626 ml 85.3 ml Exam H EENT exam; supple neck, no JVD. No lymphadenopathy. Midline trachea. No thyromegaly. Orally intubated. Patient has fair dentition. Chest exam; clear to auscultation. S1-S2 audible, no murmurs. Regular rhythm. Abdomen exam; soft, dressing applied at laparoscopic incision sites. Bowel sounds audible. There is very minimal abdominal tenderness. Extremity exam; no peripheral edema or clubbing. Pulses 2+. [employer] exam; no focal deficit. Results Result Diagram: 11/30/18 0430 11/30/18 0430 Results 24hrs Laboratory Tests Test 11/29/18 16:30 11/29/18 16:42 11/29/18 17:10 11/29/18 17:19 White Blood 16.2 #H Count Red Blood Count 3.76 L Hemoglobin 11.4 L Hematocrit 35.7 L Mean 94.9 Corpuscular Volume Mean 30.3 Corpuscular Hemoglobin Mean 31.9 L Corpuscular Hemoglobin Conc ent Red Cell 12.8 Distribution Width Platelet Count 138 #L Mean Platelet 11.2 H Volume Immature 0.400 Granulocytes % Neutrophils % 81.9 H Lymphocytes % 9.9 L Monocytes % 7.2 Eosinophils % 0.2 Basophils % 0.4 Nucleated Red 0.0 Blood Cells % Immature 0.070 H Granulocytes # Neutrophils # 13.3 H Lymphocytes # 1.6 Monocytes # 1.2 H Eosinophils # 0.0 Basophils # 0.1 Nucleated Red 0.0 Blood Cells # CBC Results 1 *H Faxed/Phoned Blood Gas Blood arterial Blood Specimen arterial Source Arterial Blood 11/29/2018 4:30: 11/29/2018 5:19 Date Drawn 00 PM :59 PM Arterial Blood 7.090 *L 7.392 pH (Temp corrected ) Arterial Blood 57.3 H 30.1 L pCO2 (Temp correct) Arterial Blood 508.7 H 553.1 H pO2 (Temp corrected ) Arterial Blood 17.7 L 18.2 L HCO3 Arterial Blood -13.0 L -6.3 L Base Excess Arterial Blood 99.6 H 99.3 H Oxygen Saturati on Donald Test N/A N/A Arterial Blood A-Line A-Line Gas Puncture Site Arterial 0.3 0.2 Blood Carboxyhe moglobin Arterial Blood 0.5 0.4 Methemoglobin Blood Gas A-a 153.4 H 134.8 H O2 Differential Oxyhemoglobin 98.8 98.7 Percent Blood Gas 34.4 35.0 Temperature Blood Gas 10.0 25.0 Respiration Rate Blood Gas 10 25 Actual Respiration Rat e Blood Gas VENT - AC VENT - AC Modality FiO2 100.0 100.0 Blood Gas Tidal 500.0 475.0 Volume Blood Gas Low 5.0 0 PEEP Setting Blood Gas DR. FLOYD Critical Value Read Back Blood Gas Sharri Harrell Notified Whom Blood Gas 11/29/2018 4:45: 11/29/2018 5:28 Notified Time 00 PM :08 PM Sodium Level 139 Potassium Level 4.1 Chloride Level 112 H Carbon Dioxide 17 L Level Anion Gap 10 Blood Urea 11 Nitrogen Creatinine 0.62 Est Glomerular > 60 Filtrat Rate mL/min Glucose Level 95 Lactic Acid 1.4 Level Calcium Level 7.7 L Phosphorus 4.5 Level Magnesium Level 1.7 Total Bilirubin 0.2 Direct 0.00 Bilirubin Indirect 0.2 Bilirubin Aspartate Amino 21 Transf (AST/SGO T) Alanine 32 Aminotransferas e (ALT/SGPT) Alkaline 40 L Phosphatase Troponin I < 0.012 Total Protein 4.7 L Albumin 2.8 L Globulin 1.90 Albumin/Globuli 1.47 n Ratio Amylase Level 52 Lipase 65 Test 11/29/18 17:45 11/29/18 19:49 11/29/18 22:17 11/29/18 23:33 Platelet Count 97 #L Prothrombin 15.1 H Time Prothrombin 1.2 Time Ratio INR 1.18 International Normalized Rati o Activated 31.5 Partial Thrombo plast Time Thrombin Time 16.7 D-Dimer 2197.07 H D-Dimer Comment White Blood 9.7 # Count Red Blood Count 3.62 L Hemoglobin 10.8 L 10.5 L Hematocrit 34.0 L 32.4 L Mean 93.9 Corpuscular Volume Mean 29.8 Corpuscular Hemoglobin Mean 31.8 L Corpuscular Hemoglobin Conc ent Red Cell 12.8 Distribution Width Mean Platelet 10.6 H Volume Immature 0.300 Granulocytes % Neutrophils % Segmented 79 H Neutrophils % (Manual) Band 13 H Neutrophils % (Manual) Lymphocytes % Lymphocytes % 4 L (Manual) Reactive 1 H Lymphocytes % (Manual) Monocytes % Monocytes % 3 (Manual) Eosinophils % Basophils % Nucleated Red 0.0 Blood Cells % Immature 0.030 Granulocytes # Neutrophils # Neutrophils # 7.8 H (Manual) Band 1.2 H Neutrophils # Lymphocytes 0.3 L (Manual) Lymphocytes # Reactive 0.0 Lymphocytes # Monocytes # Monocytes # 0.2 L (Manual) Eosinophils # Basophils # Nucleated Red Blood Cells # Platelet DECREASED Estimate Sodium Level 139 Potassium Level 4.0 Chloride Level 111 H Carbon Dioxide 17 L Level Anion Gap 11 Blood Urea 10 Nitrogen Creatinine 0.62 Est Glomerular > 60 Filtrat Rate mL/min Glucose Level 125 Calcium Level 8.9 Total Bilirubin 0.4 Direct 0.00 Bilirubin Indirect 0.4 Bilirubin Aspartate Amino 24 Transf (AST/SGO T) Alanine 20 Aminotransferas e (ALT/SGPT) Alkaline 43 Phosphatase Total Protein 5.3 L Albumin 3.3 Globulin 2.00 Albumin/Globuli 1.65 n Ratio Blood Gas Blood Specimen arterial Source Arterial Blood 11/29/2018 8:38 Date Drawn :12 PM Arterial Blood 7.223 *L pH (Temp corrected ) Arterial Blood 44.7 pCO2 (Temp correct) Arterial Blood 504.9 H pO2 (Temp corrected ) Arterial Blood 18.0 L HCO3 Arterial Blood -9.3 L Base Excess Arterial Blood 99.3 H Oxygen Saturati on Donald Test N/A Arterial Blood A-Line Gas Puncture Site Arterial 0.1 Blood Carboxyhe moglobin Arterial Blood 0.4 Methemoglobin Blood Gas A-a 163.4 H O2 Differential Oxyhemoglobin 98.8 Percent Blood Gas 37.0 Temperature Blood Gas 12.0 Respiration Rate Blood Gas 12 Actual Respiration Rat e Blood Gas VENT - AC Modality FiO2 100.0 Blood Gas Tidal 470.0 Volume Blood Gas Low 5.0 PEEP Setting Blood Gas Chris WRIGHT RN Critical Value Read Back Blood Gas Robert [facility] Notified Whom Blood Gas 11/29/2018 8:44 Notified Time :48 PM Test 11/30/18 00:15 11/30/18 00:19 11/30/18 04:30 11/30/18 05:00 Urine Color STRAW Urine Clarity CLEAR Urine pH 5.0 Urine Specific 1.059 H [place] Urine Ketones 2+ H Urine Nitrite NEGATIVE Urine Bilirubin NEGATIVE Urine NEGATIVE Urobilinogen Urine Leukocyte NEGATIVE Esterase Urine 9 H Microscopic RBC Urine 1 Microscopic WBC Urine Mucus FEW A Urine 2+ H Hemoglobin Urine Glucose 1+ H Urine Total NEGATIVE Protein Troponin I < 0.012 < 0.012 White Blood 7.4 # Count Red Blood Count 3.13 L Hemoglobin 9.6 L Hematocrit 28.3 L Mean 90.4 Corpuscular Volume Mean 30.7 Corpuscular Hemoglobin Mean 33.9 Corpuscular Hemoglobin Conc ent Red Cell 12.8 Distribution Width Platelet Count 108 L Mean Platelet 10.9 H Volume Immature 0.400 Granulocytes % Neutrophils % 88.9 H Lymphocytes % 5.0 L Monocytes % 5.4 Eosinophils % 0.0 Basophils % 0.3 Nucleated Red 0.0 Blood Cells % Immature 0.030 Granulocytes # Neutrophils # 6.6 Lymphocytes # 0.4 L Monocytes # 0.4 Eosinophils # 0.0 Basophils # 0.0 Nucleated Red 0.0 Blood Cells # Sodium Level 137 Potassium Level 4.4 Chloride Level 107 Carbon Dioxide 21 Level Anion Gap 9 Blood Urea 9 Nitrogen Creatinine 0.57 Est Glomerular > 60 Filtrat Rate mL/min Glucose Level 212 Lactic Acid 2.4 *H Level Calcium Level 8.5 Total Bilirubin 0.2 Direct 0.00 Bilirubin Indirect 0.2 Bilirubin Aspartate Amino 22 Transf (AST/SGO T) Alanine 24 Aminotransferas e (ALT/SGPT) Alkaline 28 L Phosphatase Total Protein 4.8 L Albumin 2.9 L Globulin 1.90 Albumin/Globuli 1.52 n Ratio Amylase Level 49 Lipase 39 Blood Gas Blood Specimen arterial Source Arterial Blood 11/30/2018 4:45 Date Drawn :37 AM Arterial Blood 7.404 pH (Temp corrected ) Arterial Blood 33.0 L pCO2 (Temp correct) Arterial Blood 188.9 H pO2 (Temp corrected ) Arterial Blood 20.2 L HCO3 Arterial Blood -3.9 L Base Excess Arterial Blood 98.5 H Oxygen Saturati on Donald Test N/A Arterial Blood A-Line Gas Puncture Site Arterial 0.1 Blood Carboxyhe moglobin Arterial Blood 0.5 Methemoglobin Blood Gas A-a 58.4 H O2 Differential Oxyhemoglobin 97.9 Percent Blood Gas 37.0 Temperature Blood Gas 16.0 Respiration Rate Blood Gas 16 Actual Respiration Rat e Blood Gas VENT - AC Modality FiO2 40.0 Blood Gas Tidal 470.0 Volume Blood Gas Low 5.0 PEEP Setting Blood Gas [facility]. Notified Whom Blood Gas 11/30/2018 4:54 Notified Time :39 AM Test 11/30/18 05:09 Lab Scanned REFERENCE LAB Report Medications Medication Current Medications Lactated Ringer's 1,000 ml @ 30 mls/hr Q24H IV ; Start 11/29/18 at 10:30 Propofol 100 ml @ 1.863 mls/ hr Q12H IV Last administered on 11/30/18at 00:20; Admin Dose 7.452 MLS/HR; Start 11/29/18 at 19:30 Hydromorphone HCl (Dilaudid) 0.5 mg Q2H PRN IV PAIN LEVEL 1-5; Start 11/29/18 at 19:00 Ondansetron HCl (Zofran Inj) 4 mg Q6H PRN IV NAUSEA AND/OR VOMITING; Start 11/29/18 at 19:00 Pantoprazole (Protonix Iv) 40 mg DAILY@06 IV Last administered on 11/30/18 05:41; Admin Dose 40 MG; Start 11/30/18 at 06:00 Potassium Chloride/Dextrose/ Sod Cl 1,000 ml @ 100 mls/hr Q10H IV Last administered on 11/29/18 19:30; Admin Dose 100 MLS/HR; Start 11/29/18 at 18:56 Hydromorphone HCl (Dilaudid) 1 mg Q2H PRN IV pain 6-10; Start 11/29/18 at 19:00 Fentanyl 100 ml @ 2.5 mls/hr TITRATE PRN IV RASS -2 TO -3 Last administered on 11/29/18at 21:54; Admin Dose 2.5 MLS/HR; Start 11/29/18 at 21:00 Levothyroxine Sodium (Synthroid Iv) 37.5 mcg DAILY@06 IV Last administered on 11/30/18 05:41; Admin Dose 37.5 MCG; Start 11/30/18 at 06:00 Meropenem/Sodium Chloride 50 ml @ 100 mls/hr Q8 IVPB Last administered on 05:41; Admin Dose 100 MLS/HR; Start 11/29/18 at 23:00 ROCKY MARTIN Nov 30, 2018 09:46
[2018-11-30] MEDS: HYDROmorphONE 0.5 MG/0.5 ML SYG IV PRN ×3 (11:17→20:44)
--- NOTE | 2018-11-30 11:31 | PN ---
Date/Time of Note Date/Time of Note DATE: 11/30/18 TIME: 11:20 Assessment/Plan Lines/Catheters IV Catheter Type (from [facility]): Central Line Frye in Place (from [facility]): Yes Assessment/Plan Chief Complaint/Hosp Course 1. Intraoperative hypotension, drop in u/o, and acidosis. ? Etiology (DDx: infection (persistent diverticulitis vs other), vs hypovolemia, vs electrolyte imbalance -judicious fluid management -abx -supportive 2. Lactic acidosis, ? etiology -as above 3. Anemia, ? dilutional vs bleeding. CT A C/A/P without active bleeding. Drain serosang -close monitoring 4. Diffuse bowel edema on CT ? fluid overload vs hypotensive intraop episode vs other 5. Hypoalbuminemia multifactorial -monitor and eventual diet optimization 6. Need for mechanical ventilation postoperatively since wasnt breathing sufficiently, improved and extubated 7. Hypothyroid -meds 8. Thrombocytopenia -monitor Thank you, Subjective 24 Hr Interval Summary Patient kept intubated after surgery since she wasnt waking up adequately. DDimer was elevated but CTA chest negative for PE. Troponins were negative. Hg decreased today. CT A/P without active bleeding or hematoma. Right IJ central line placed last night. No current f/c. Just extubated. Min abdominal pain. No martinez/visual or neuro changes. No sob/cp. No n/v. No cough. No sz. No bowel function. Frye intact. Labs noted. Yesterday had bandemia but none reported today > asked lab to run for today. Lactic acid slightly elevated today at 2.4. Patient with subq emphysema since surgery. Exam/Review of Systems Vital Signs Vitals Vital Signs Date Temp Pulse Resp B/P (MAP) Pulse Ox O2 O2 Flow FiO2 Time Delivery Rate 11/30/18 87 15 111/55 100 CPAP 10:30 (73) 11/30/18 98.7 08:00 11/30/18 40 05:22 Intake and Output 11/29/18 11/29/18 11/30/18 1515:00 23:00 07:00 IntakeIntake Total 5964.626 ml 925.3 ml OutputOutput Total 1510 ml 915 ml BalanceBalance 4454.626 ml 10.3 ml Exam Constitutional: alert, oriented; No distress Psych: anxiety; No confusion Head: normocephalic, atraumatic Eyes: nl conjunctiva, EOMI, PERRL; No icteric ENMT: nl external ears & nose, nl lips & teeth, mucosa pink and moist Neck: supple, non-tender, jvd (min) Respiratory: normal air movement; No congested cough, No labored breathing, No wheezing Cardiovascular: regular rate and rhythm; No edema Gastrointestinal: soft, distended (min), tender (min); No rebound or guarding Musculoskeletal: nl extremities to inspection; No joint tenderness Extremities: normal pulses; No calf tenderness, No cyanosis Neurological: nl mental status, nl speech, nl strength Skin: nl turgor, other (subq emphysema); No rash or lesions, No diaphoresis Lymph: nl lymph nodes Results Result Diagram: 11/30/180 11/30/18 0430 SHEILA FLOYD MD Nov 30, 2018 11:31
[2018-12-01] VITALS (29 sets, daily range): BP systolic 98–128; BP diastolic 48–76; PULSE 70–101; RESP 11–21
[2018-12-01] MEDS: D5W-0.45 NACL + KCL 20 MEQ 1,000 ML IV SCH ×3 (00:06→22:54)
[2018-12-01] MEDS: ONDANSETRON 4 MG INJ IV PRN ×3 (02:45→22:46)
[2018-12-01] MEDS: HYDROmorphONE 0.5 MG/0.5 ML SYG IV PRN ×4 (04:39→18:45)
[2018-12-01] MEDS: PANTOPRAZOLE 40 MG INJ IV SCH (05:53)
[2018-12-01] MEDS: LEVOTHYROXINE 100 MCG VIAL IV SCH (05:53)
[2018-12-01] MEDS: MEROPENEM 1 GM/50ML(PMX) 50 ML IVPB SCH ×3 (05:56→22:21)
--- NOTE | 2018-12-01 10:11 | PN ---
Date/Time of Note Date/Time of Note DATE: 12/01/18 TIME: 10:03 Assessment/Plan Lines/Catheters IV Catheter Type (from [facility]): A Line Frye in Place (from [facility]): Yes Assessment/Plan Chief Complaint/Hosp Course 1. 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 ? Etiology (DDx: infection (persistent diverticulitis vs other), vs hypovolemia, vs electrolyte imbalance; hypertension improved= -abx -supportive -Close monitoring -IS -ambulate -ice pack to abdominal wall -N.p.o. for now; await bowel function 2. Lactic acidosis, ? etiology; normalized; bandemia improved -as above 3. Anemia, ? dilutional vs bleeding. CT A C/A/P without active bleeding. Drain serosang -close monitoring -Transfuse as needed 4. Diffuse bowel edema on CT ? fluid overload vs hypotensive intraop episode vs other 5. Hypoalbuminemia multifactorial -monitor and eventual diet optimization 6. Need for mechanical ventilation postoperatively since wasnt breathing sufficiently, improved and extubated; currently on low flow nasal cannula 7. Hypothyroid -meds 8. Thrombocytopenia -monitor 9. Hypocalcemia: Likely multifactorial -Eventual nutrition optimization -Replete as needed and monitor Thank you. Patient seen and examined in collaboration with Dr. Maxi Ortiz. Subjective 24 Hr Interval Summary Feels improved. Fever overnight. No bowel function as of yet. No chills, sob, congested cough, cp, palpitations, martinez, dizziness, nausea, vomiting, diarrhea, dysuria. Minimal abdominal pain. Exam/Review of Systems Vital Signs Vitals Vital Signs Date Temp Pulse Resp B/P (MAP) Pulse Ox O2 O2 Flow FiO2 Time Delivery Rate 12/01/18 88 14 121/60 97 Nasal 1.0 09:15 (80) Cannula 12/01/18 98.3 08:00 11/30/18 30 09:20 Intake and Output 11/30/18 11/30/18 12/01/18 1414:59 22:59 06:59 IntakeIntake Total 1668.702 ml 500 ml OutputOutput Total 690 ml 745 ml 665 ml BalanceBalance 978.702 ml -245 ml -665 ml Exam Free Text/Dictation Constitutional: alert, oriented; No distress Psych: anxiety; No confusion Head: normocephalic, atraumatic Eyes: nl conjunctiva, EOMI, PERRL; No icteric ENMT: nl external ears & nose, nl lips & teeth, mucosa pink and moist; Neck: supple, non-tender, jvd (min); right IJ Respiratory: normal air movement; No congested cough, No labored breathing, No wheezing Cardiovascular: regular rate and rhythm; No edema Gastrointestinal: soft, distended (min), tender (min); incision sites dry without drainage/bruising/discoloration; [place]: Serous sanguinous No rebound or guarding Musculoskeletal: nl extremities to inspection; No joint tenderness Extremities: normal pulses; No calf tenderness, No cyanosis Neurological: nl mental status, nl speech, nl strength Skin: nl turgor, other (subq emphysema); No rash or lesions, No diaphoresis Lymph: nl lymph nodes Results Result Diagram: 12/01/1839912/01/18399 VALARIE BOWER NP Dec 01, 2018 10:11
--- NOTE | 2018-12-01 10:21 | CONS ---
Consult Date/Type/Reason Admit Date/Time Nov 29, 2018 at 08:13 Initial Consult Date 11/30/18 Type of Consult Pulmonary Date/Time of Note DATE: 12/01/18 TIME: 10:17 Subjective Patient extubated yesterday. Awake alert this morning still has nausea from analgesia. Still no significant bowel sounds. No respiratory distress at present. Objective Vital Signs Date Temp Pulse Resp B/P (MAP) Pulse Ox O2 O2 Flow FiO2 Time Delivery Rate 12/01/18 94 21 123/58 91 Room Air 10:00 (79) 12/01/18 1.0 09:15 12/01/18 98.3 08:00 11/30/18 30 09:20 Intake and Output 11/30/18 11/30/18 12/01/18 1515:00 23:00 07:00 IntakeIntake Total 1756.75 ml 400 ml 150 ml OutputOutput Total 665 ml 770 ml 715 ml BalanceBalance 1091.75 ml -370 ml -565 ml Exam GENERAL: VITAL SIGNS: per chart NECK: Supple. No JVD or lymphadenopathy. CARDIAC EXAM: S1, S2. No added sounds or murmurs. CHEST: clear bilaterally, No added sounds, rales or wheezes ABDOMEN: Soft, nontender. No guarding or rebound. No bowel sounds. EXTREMITIES: No cyanosis, clubbing or edema. NEUROLOGIC: Generalized weakness. No focal deficits. Vent Setting Ventilator Support Mode: CPAP, PS Fraction of Inspired Oxygen pe: 30 Positive End Expiratory Pressu: 5.0 Results/Medications Result Diagram: 12/01/18 0400 12/01/18 0400 Results 24 hrs Laboratory Tests Test 11/30/18 11:58 11/30/18 13:52 11/30/18 18:45 12/01/18 04:00 Troponin I < 0.012 < 0.012 Lactic Acid Level 0.7 White Blood Count 7.4 Red Blood Count 3.13 L Hemoglobin 9.8 L Hematocrit 28.8 L Mean Corpuscular 92.0 Volume Mean Corpuscular 31.3 Hemoglobin Mean Corpuscular 34.0 Hemoglobin Concent Red Cell 13.2 Distribution Width Platelet Count 99 L Mean Platelet Volume 11.3 H Immature 0.400 Granulocytes % Neutrophils % 86.3 H Lymphocytes % 5.0 L Monocytes % 7.6 Eosinophils % 0.4 Basophils % 0.3 Nucleated Red Blood 0.0 Cells % Immature 0.030 Granulocytes # Neutrophils # 6.4 Lymphocytes # 0.4 L Monocytes # 0.6 Eosinophils # 0.0 Basophils # 0.0 Nucleated Red Blood 0.0 Cells # Sodium Level 134 L Potassium Level 4.0 Chloride Level 104 Carbon Dioxide Level 25 Anion Gap 5 Blood Urea Nitrogen 5 L Creatinine 0.54 Est Glomerular > 60 Filtrat Rate mL/min Glucose Level 128 # Calcium Level 7.8 L Phosphorus Level 2.3 #L Magnesium Level 1.9 Medications Current Medications Lactated Ringer's 1,000 ml @ 30 mls/hr Q24H IV ; Start 11/29/18 at 10:30 Hydromorphone HCl (Dilaudid) 0.5 mg Q2H PRN IV PAIN LEVEL 1-5 Last administered on 12/01/18 08:28; Admin Dose 0.5 MG; Start 11/29/18 at 19:00 Ondansetron HCl (Zofran Inj) 4 mg Q6H PRN IV NAUSEA AND/OR VOMITING Last administered on 12/01/18 02:45; Admin Dose 4 MG; Start 11/29/18 at 19:00 Pantoprazole (Protonix Iv) 40 mg DAILY@06 IV Last administered on 12/01/18 05:53; Admin Dose 40 MG; Start 11/30/18 at 06:00 Potassium Chloride/Dextrose/ Sod Cl 1,000 ml @ 100 mls/hr Q10H IV Last administered on 12/01/18 00:06; Admin Dose 100 MLS/HR; Start 11/29/18 at 18:56 Hydromorphone HCl (Dilaudid) 1 mg Q2H PRN IV pain 6-10; Start 11/29/18 at 19:00 Levothyroxine Sodium (Synthroid Iv) 37.5 mcg DAILY@06 IV Last administered on 12/01/18 05:53; Admin Dose 37.5 MCG; Start 11/30/18 at 06:00 Meropenem/Sodium Chloride 50 ml @ 100 mls/hr Q8 IVPB Last administered on 12/01/18 05:56; Admin Dose 100 MLS/HR; Start 11/29/18 at 23:00 Potassium Phosphate 30 mm/ Sodium Chloride 260 ml @ 65 mls/hr ONCE ONCE IVPB Last administered on 4/18/19at 09:22; Admin Dose 65 MLS/HR; Start 12/01/18 at 11:00; Stop 12/01/18 at 14:59 Assessment/Plan Hospital Course (Demo Recall) Assessment 1. 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 2. S/P resp failure now extubated. Plan 1. Continue surgical post op recs 2. IS 3. Pain control 4. DVT and GI prophylaxis. cc40 mins. MARISOL PÉREZ MD[facility] Dec 01, 2018 10:21
[2018-12-01] MEDS ORDERED: POTASSIUM PHOSPHATE 30 MM in SOD CHLORIDE 0.9% 250 ML IVPB ONE (11:00)
--- NOTE | 2018-12-01 11:06 | PN ---
Date/Time of Note Date/Time of Note DATE: 12/01/18 TIME: 11:02 Assessment/Plan VTE Prophylaxis Risk score (from Ns)>0 risk: 5 [place] [facility] [place] Pharmacological prophylaxis: NA/contraindicated Pharm contraindication: surgical contra Lines/Catheters IV Catheter Type (from [facility], [place]): A Line Urinary Cath still in place: Yes Reason Cath still needed: other (indicate) (per surgery) Assessment/Plan Assessment/Plan 63 yo woman with history of hypothyroidism and recurrent diverticulitis admitted after scheduled sigmoid colectomy. 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 Please see operative report for full operative details. - CT of the chest abdomen and pelvis postop shows signs of gastritis/colitis. Mild pneumoperitoneum which is expected. - Patient did receive intraoperative fluids and calcium given patient's hypotension, now normotensive off pressors. - Currently on postoperative meropenem. - Diet advancement per surgery # acute ventilatory dependent respiratory failure. - Patient was lethargic postop was not able to be extubated. - Now awake breathing well; extubated postop day 1. # Bandemia: - Expected stress response after major surgery - Febrile postop day 1 to 101.4. May be due to atelectasis. - Currently on postoperative antibiotics. # normocytic anemia: No signs of any overt intraoperative bleeding. Will monitor CBC closely. # DVT GI prophylaxis: SCDs, Protonix Greater than 45 minutes of critical care time was spent on the care and management this patient. Result Diagram: 12/01/18 0400 12/01/18 0400 Subjective 24 Hr Interval Summary Free Text/Dictation Extubated yesterday morning. Febrile to 101.4 yesterday afternoon. Patient awake, alert. Apprehensive about eating because she's worried she'll vomit and tear her incisions; even though she denies nausea. Off pressors, breathing room air. Exam/Review of Systems Exam Vitals Vital Signs Date Temp Pulse Resp B/P (MAP) Pulse Ox O2 O2 Flow FiO2 Time Delivery Rate 12/01/18 94 21 123/58 91 Room Air 10:00 (79) 12/01/18 1.0 09:15 12/01/18 98.3 08:00 11/30/18 30 09:20 Intake and Output 411/30/18 12/01/18 1515:00 23:00 07:00 IntakeIntake Total 1756.75 ml 400 ml 150 ml OutputOutput Total 665 ml 770 ml 715 ml BalanceBalance 1091.75 ml -370 ml -565 ml Exam General: Frail appearing woman in no acute distress. HEENT: Atraumatic, normocephalic. The pupils are equal, round and reactive to light. Neck: Supple with full range of motion. No rigidity or meningismus Chest: Nontender Lungs: Clear to auscultation bilaterally, diminished lower lung sounds. Very poor incentive spirometry volumes <500 cc, deep inspiration causes pain. Heart: Normal S1-S2, Regular rhythm and rate. No murmur, S3, or S4 Abdomen: Midline lap incisions clean and dry. Tender to moderate palpation. Nondistended. Genitourinary: Frye catheter with clear yellow urine Extremities: Normal to inspection, no edema no cyanosis Results Results 24hrs Laboratory Tests Test 11/30/18 11:58 11/30/18 13:52 11/30/18 18:45 12/01/18 04:00 Troponin I < 0.012 < 0.012 Lactic Acid Level 0.7 White Blood Count 7.4 Red Blood Count 3.13 L Hemoglobin 9.8 L Hematocrit 28.8 L Mean Corpuscular 92.0 Volume Mean Corpuscular 31.3 Hemoglobin Mean Corpuscular 34.0 Hemoglobin Concent Red Cell 13.2 Distribution Width Platelet Count 99 L Mean Platelet Volume 11.3 H Immature 0.400 Granulocytes % Neutrophils % 86.3 H Lymphocytes % 5.0 L Monocytes % 7.6 Eosinophils % 0.4 Basophils % 0.3 Nucleated Red Blood 0.0 Cells % Immature 0.030 Granulocytes # Neutrophils # 6.4 Lymphocytes # 0.4 L Monocytes # 0.6 Eosinophils # 0.0 Basophils # 0.0 Nucleated Red Blood 0.0 Cells # Sodium Level 134 L Potassium Level 4.0 Chloride Level 104 Carbon Dioxide Level 25 Anion Gap 5 Blood Urea Nitrogen 5 L Creatinine 0.54 Est Glomerular > 60 Filtrat Rate mL/min Glucose Level 128 # Calcium Level 7.8 L Phosphorus Level 2.3 #L Magnesium Level 1.9 Medications Medication Current Medications Hydromorphone HCl (Dilaudid) 0.5 mg Q2H PRN IV PAIN LEVEL 1-5 Last administered on 12/01/18 08:28; Admin Dose 0.5 MG; Start 11/29/18 at 19:00 Ondansetron HCl (Zofran Inj) 4 mg Q6H PRN IV NAUSEA AND/OR VOMITING Last administered on 12/01/18at 02:45; Admin Dose 4 MG; Start 11/29/18 at 19:00 Pantoprazole (Protonix Iv) 40 mg DAILY@06 IV Last administered on 12/01/18 05:53; Admin Dose 40 MG; Start 11/30/18 at 06:00 Potassium Chloride/Dextrose/ Sod Cl 1,000 ml @ 100 mls/hr Q10H IV Last administered on 12/01/18 00:06; Admin Dose 100 MLS/HR; Start 11/29/18 at 18:56 Hydromorphone HCl (Dilaudid) 1 mg Q2H PRN IV pain 6-10; Start 11/29/18 at 19:00 Levothyroxine Sodium (Synthroid Iv) 37.5 mcg DAILY@06 IV Last administered on 12/01/18at 05:53; Admin Dose 37.5 MCG; Start 11/30/18 at 06:00 Meropenem/Sodium Chloride 50 ml @ 100 mls/hr Q8 IVPB Last administered on 12/01/18 05:56; Admin Dose 100 MLS/HR; Start 11/29/18 at 23:00 Potassium Phosphate 30 mm/ Sodium Chloride 260 ml @ 65 mls/hr ONCE ONCE IVPB Last administered on 12/01/18at 09:22; Admin Dose 65 MLS/HR; Start 12/01/18 at 11:00; Stop 12/01/18 at 14:59 LAURA SWANSON MD Dec 01, 2018 11:06
[2018-12-01] MEDS ORDERED: METOCLOPRAMIDE 10 MG INJ IV ONE (18:00)
[2018-12-01] MEDS: FAMOTIDINE 20 MG INJ IV SCH (22:17)
[2018-12-02] VITALS (12 sets, daily range): BP systolic 113–131; BP diastolic 60–63; PULSE 71–87; RESP 19–22
[2018-12-02] MEDS: ONDANSETRON 4 MG INJ IV PRN ×2 (06:23→13:05)
[2018-12-02] MEDS: LEVOTHYROXINE 100 MCG VIAL IV SCH (06:23)
[2018-12-02] MEDS: MEROPENEM 1 GM/50ML(PMX) 50 ML IVPB SCH ×3 (06:24→20:12)
[2018-12-02] MEDS: HYDROmorphONE 0.5 MG/0.5 ML SYG IV PRN ×3 (06:24→17:39)
[2018-12-02] MEDS: D5W-0.45 NACL + KCL 20 MEQ 1,000 ML IV SCH ×4 (06:56→20:12)
[2018-12-02] MEDS: FAMOTIDINE 20 MG INJ IV SCH ×2 (08:28→20:12)
[2018-12-02] MEDS: METOCLOPRAMIDE 10 MG INJ IV PRN ×2 (09:24→17:38)
--- NOTE | 2018-12-02 10:48 | PN ---
Date/Time of Note Date/Time of Note DATE: 12/02/18 TIME: 10:46 Assessment/Plan VTE Prophylaxis Risk score (from Ns)>0 risk: 3 SCD applied (from Ns): Yes Pharmacological prophylaxis: NA/contraindicated Pharm contraindication: surgical contra [facility] Central line still needed: Yes Urinary Cath still in place: Yes Reason Cath still needed: other (indicate) (postop) Assessment/Plan Assessment/Plan 63 yo woman with history of hypothyroidism and recurrent diverticulitis admitted after scheduled sigmoid colectomy. 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 Please see operative report for full operative details. - CT of the chest abdomen and pelvis postop shows signs of gastritis/colitis. Mild pneumoperitoneum which is expected. - Patient did receive intraoperative fluids and calcium given patient's hypotension, now normotensive off pressors. - Currently on postoperative meropenem. - Diet advancement per surgery # acute ventilatory dependent respiratory failure. - Patient was lethargic postop was not able to be extubated. - Now awake breathing well; extubated postop day 1. # Bandemia: - Expected stress response after major surgery - Febrile postop day 1 to 101.4. May be due to atelectasis. - Currently on postoperative antibiotics. # normocytic anemia: No signs of any overt intraoperative bleeding. Will monitor CBC closely. # DVT GI prophylaxis: SCDs, Protonix Result Diagram: 12/02/1861612/02/18616 Subjective 24 Hr Interval Summary Free Text/Dictation No acute overnight events. Continues to have significant nausea; requiring zofran and reglan ATC. Not passing gas or stool. Pain adequately controlled. Ambulating Breathing comfortably on room air. Exam/Review of Systems Exam Vitals Vital Signs Date Temp Pulse Resp B/P (MAP) Pulse Ox O2 O2 Flow FiO2 Time Delivery Rate 12/02/18 72 08:22 12/02/18 97.9 22 128/63 96 Nasal 2.0 08:14 (84) Cannula 11/30/18 30 09:20 Intake and Output 12/01/18 12/01/18 12/02/18 1515:00 23:00 07:00 IntakeIntake Total 1510 ml 1050 ml 700 ml OutputOutput Total 995 ml 10 ml 1525 ml BalanceBalance 515 ml 1040 ml -825 ml Exam General: Frail appearing woman in no acute distress. HEENT: Atraumatic, normocephalic. The pupils are equal, round and reactive to light. Neck: Supple with full range of motion. No rigidity or meningismus Chest: Nontender Lungs: Clear to auscultation bilaterally, diminished lower lung sounds. Very poor incentive spirometry volumes <500 cc, deep inspiration causes pain. Heart: Normal S1-S2, Regular rhythm and rate. No murmur, S3, or S4 Abdomen: Midline lap incisions clean and dry. Tender to moderate palpation. Nondistended. Genitourinary: Frye catheter with clear yellow urine Extremities: Normal to inspection, no edema no cyanosis Results Results 24hrs Laboratory Tests Test 12/02/18 06:17 White Blood Count 4.8 # Red Blood Count 3.20 L Hemoglobin 9.6 L Hematocrit 29.3 L Mean Corpuscular Volume 91.6 Mean Corpuscular Hemoglobin 30.0 Mean Corpuscular Hemoglobin Concent 32.8 Red Cell Distribution Width 12.4 Platelet Count 110 L Mean Platelet Volume 11.4 H Immature Granulocytes % 0.200 Neutrophils % 78.7 H Lymphocytes % 11.3 L Monocytes % 7.9 Eosinophils % 1.5 Basophils % 0.4 Nucleated Red Blood Cells % 0.0 Immature Granulocytes # 0.010 Neutrophils # 3.8 Lymphocytes # 0.5 L Monocytes # 0.4 Eosinophils # 0.1 Basophils # 0.0 Nucleated Red Blood Cells # 0.0 Sodium Level 136 Potassium Level 4.3 Chloride Level 105 Carbon Dioxide Level 28 Anion Gap 3 L Blood Urea Nitrogen 4 L Creatinine 0.53 Est Glomerular Filtrat Rate mL/min > 60 Glucose Level 127 Calcium Level 8.3 L Medications Medication Current Medications Hydromorphone HCl (Dilaudid) 0.5 mg Q2H PRN IV PAIN LEVEL 1-5 Last administered on 12/02/18at 06:24; Admin Dose 0.5 MG; Start 11/29/18 at 19:00 Ondansetron HCl (Zofran Inj) 4 mg Q6H PRN IV NAUSEA AND/OR VOMITING Last administered on 12/02/18at 06:23; Admin Dose 4 MG; Start 11/29/18 at 19:00 Potassium Chloride/Dextrose/ Sod Cl 1,000 ml @ 100 mls/hr Q10H IV Last administered on 12/02/18 10:30; Admin Dose 100 MLS/HR; Start 11/29/18 at 18:56 Hydromorphone HCl (Dilaudid) 1 mg Q2H PRN IV pain 6-10 Last administered on 12/01/18 22:17; Admin Dose 1 MG; Start 11/29/18 at 19:00 Levothyroxine Sodium (Synthroid Iv) 37.5 mcg DAILY@06 IV Last administered on 12/02/18 06:23; Admin Dose 37.5 MCG; Start 11/30/18 at 06:00 Meropenem/Sodium Chloride 50 ml @ 100 mls/hr Q8 IVPB Last administered on 12/02/18 06:24; Admin Dose 100 MLS/HR; Start 11/29/18 at 23:00 Famotidine (Pepcid Iv) 20 mg BID IV Last administered on 12/02/18 08:28; Admin Dose 20 MG; Start 12/01/18 at 21:00 Metoclopramide HCl (Reglan) 10 mg Q6H PRN IV nausea Last administered on 12/02/18 09:24; Admin Dose 10 MG; Start 12/02/18 at 09:30 LAURA SWANSON MD Dec 02, 2018 10:48
--- NOTE | 2018-12-02 12:58 | PN ---
Date/Time of Note Date/Time of Note DATE: 12/02/18 TIME: 12:55 Assessment/Plan Lines/Catheters IV Catheter Type (from [facility] Central Line En[place]or[place] in Place (from [facility]): Yes Assessment/Plan Chief Complaint/Hosp Course 1. 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 ? Etiology (DDx: infection (persistent diverticulitis vs other), vs hypovolemia, vs electrolyte imbalance; Improved -supportive -Close monitoring -IS -ambulate -ice pack to abdominal wall -N.p.o. for now; await bowel function -dc enamorado -dc central line 2. Lactic acidosis, ? etiology; normalized; bandemia improved -as above 3. Anemia, ? dilutional vs bleeding. CT A C/A/P without active bleeding. Drain serosang -close monitoring -Transfuse as needed 4. Diffuse bowel edema on CT ? fluid overload vs hypotensive intraop episode vs other 5. Hypoalbuminemia multifactorial -monitor and eventual diet optimization 6. Need for mechanical ventilation postoperatively since wasnt breathing sufficiently, improved and extubated; currently on low flow nasal cannula 7. Hypothyroid -meds 8. Thrombocytopenia -monitor 9. Hypocalcemia: Likely multifactorial -Eventual nutrition optimization -Replete as needed and monitor Thank you, Subjective 24 Hr Interval Summary No bowel function yet. No fevers, chills, sob, congested cough, cp, palpitations, martinez, dizziness, nausea, vomiting, diarrhea, dysuria. Minimal abdominal pain. Ambulating. Enamorado in. ANTONIETTA serosang. Central line in. Exam/Review of Systems Vital Signs Vitals Vital Signs Date Temp Pulse Resp B/P (MAP) Pulse Ox O2 O2 Flow FiO2 Time Delivery Rate 12/02/18 72 12:29 12/02/18 97.8 22 122/63 96 Room Air 12:08 (82) 12/02/18 2.0 08:14 11/30/18 30 09:20 Intake and Output 12/01/18 12/01/18 12/02/18 1515:00 23:00 07:00 IntakeIntake Total 1510 ml 1050 ml 700 ml OutputOutput Total 995 ml 10 ml 1525 ml BalanceBalance 515 ml 1040 ml -825 ml Exam Free Text/Dictation Constitutional: alert, oriented; No distress Psych: anxiety improved; No confusion Head: normocephalic, atraumatic Eyes: nl conjunctiva, EOMI, PERRL; No icteric ENMT: nl external ears & nose, nl lips & teeth, mucosa pink and moist; Neck: supple, non-tender, jvd (min); right IJ Respiratory: normal air movement; No congested cough, No labored breathing, No wheezing Cardiovascular: regular rate and rhythm; No edema Gastrointestinal: soft, distended (min), tender (min); incision sites dry without drainage/bruising/discoloration; [place]TON[place]ET[place]: Serous sanguinous No rebound or guarding Musculoskeletal: nl extremities to inspection; No joint tenderness Extremities: normal pulses; No calf tenderness, No cyanosis Neurological: nl mental status, nl speech, nl strength Skin: nl turgor, No rash or lesions, No diaphoresis Lymph: nl lymph nodes Results Result Diagram: 12/02/18 0617 12/02/18 0617 SHEILA FLOYD MD Dec 02, 2018 12:58
--- NOTE | 2018-12-02 13:38 | CONS ---
Consult Date/Type/Reason Admit Date/Time Nov 29, 2018 at 08:13 Initial Consult Date 11/30/18 Type of Consult Pulmonary Date/Time of Note DATE: 12/02/18 TIME: 13:34 Subjective Patient comfortable this morning. Less abdominal pain no bowel sounds yet. Remains n.p.o. Objective Vital Signs Date Temp Pulse Resp B/P (MAP) Pulse Ox O2 O2 Flow FiO2 Time Delivery Rate 12/02/18 72 12:29 12/02/18 97.8 22 122/63 96 Room Air 12:08 (82) 12/02/18 2.0 08:14 11/30/18 30 09:20 Intake and Output 12/01/18 12/01/18 12/02/18 1515:00 23:00 07:00 IntakeIntake Total 1510 ml 1050 ml 700 ml OutputOutput Total 995 ml 10 ml 1525 ml BalanceBalance 515 ml 1040 ml -825 ml Exam GENERAL: VITAL SIGNS: per chart NECK: Supple. No JVD or lymphadenopathy. CARDIAC EXAM: S1, S2. No added sounds or murmurs. CHEST: clear bilaterally, No added sounds, rales or wheezes ABDOMEN: Soft, nontender. No guarding or rebound. No bowel sounds. EXTREMITIES: No cyanosis, clubbing or edema. NEUROLOGIC: Generalized weakness. No focal deficits. Vent Setting Ventilator Support Mode: CPAP, PS Fraction of Inspired Oxygen pe: 30 Positive End Expiratory Pressu: 5.0 Results/Medications Result Diagram: 12/02/18 0617 12/02/18 0617 Results 24 hrs Laboratory Tests Test 12/02/18 06:17 White Blood Count 4.8 # Red Blood Count 3.20 L Hemoglobin 9.6 L Hematocrit 29.3 L Mean Corpuscular Volume 91.6 Mean Corpuscular Hemoglobin 30.0 Mean Corpuscular Hemoglobin Concent 32.8 Red Cell Distribution Width 12.4 Platelet Count 110 L Mean Platelet Volume 11.4 H Immature Granulocytes % 0.200 Neutrophils % 78.7 H Lymphocytes % 11.3 L Monocytes % 7.9 Eosinophils % 1.5 Basophils % 0.4 Nucleated Red Blood Cells % 0.0 Immature Granulocytes # 0.010 Neutrophils # 3.8 Lymphocytes # 0.5 L Monocytes # 0.4 Eosinophils # 0.1 Basophils # 0.0 Nucleated Red Blood Cells # 0.0 Sodium Level 136 Potassium Level 4.3 Chloride Level 105 Carbon Dioxide Level 28 Anion Gap 3 L Blood Urea Nitrogen 4 L Creatinine 0.53 Est Glomerular Filtrat Rate mL/min > 60 Glucose Level 127 Calcium Level 8.3 L Medications Current Medications Hydromorphone HCl (Dilaudid) 0.5 mg Q2H PRN IV PAIN LEVEL 1-5 Last administered on 12/02/18 13:05; Admin Dose 0.5 MG; Start 11/29/18 at 19:00 Ondansetron HCl (Zofran Inj) 4 mg Q6H PRN IV NAUSEA AND/OR VOMITING Last administered on 12/02/18 13:05; Admin Dose 4 MG; Start 11/29/18 at 19:00 Potassium Chloride/Dextrose/ Sod Cl 1,000 ml @ 100 mls/hr Q10H IV Last administered on 12/02/18 10:30; Admin Dose 100 MLS/HR; Start 11/29/18 at 18:56 Hydromorphone HCl (Dilaudid) 1 mg Q2H PRN IV pain 6-10 Last administered on 12/01/18 22:17; Admin Dose 1 MG; Start 11/29/18 at 19:00 Levothyroxine Sodium (Synthroid Iv) 37.5 mcg DAILY@06 IV Last administered on 12/02/18 06:23; Admin Dose 37.5 MCG; Start 11/30/18 at 06:00 Meropenem/Sodium Chloride 50 ml @ 100 mls/hr Q8 IVPB Last administered on 12/02/18 06:24; Admin Dose 100 MLS/HR; Start 11/29/18 at 23:00 Famotidine (Pepcid Iv) 20 mg BID IV Last administered on 12/02/18 08:28; Admin Dose 20 MG; Start 12/01/18 at 21:00 Metoclopramide HCl (Reglan) 10 mg Q6H PRN IV nausea Last administered on 12/02/18 09:24; Admin Dose 10 MG; Start 12/02/18 at 09:30 Assessment/Plan Hospital Course (Demo Recall) Assessment 1. 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 2. S/P resp failure now extubated. Plan 1. Continue surgical post op recs 2. IS 3. Pain control 4. DVT and GI prophylaxis. 5. Dc central line MARISOL PÉREZ MD, [facility] Dec 02, 2018 13:38
[2018-12-03] VITALS (10 sets, daily range): BP systolic 126–134; BP diastolic 60–84; PULSE 68–88; RESP 18–20
[2018-12-03] MEDS: D5W-0.45 NACL + KCL 20 MEQ 1,000 ML IV SCH ×2 (05:11→21:09)
[2018-12-03] MEDS: LEVOTHYROXINE 100 MCG VIAL IV SCH (05:12)
[2018-12-03] MEDS: MEROPENEM 1 GM/50ML(PMX) 50 ML IVPB SCH ×3 (05:25→21:09)
[2018-12-03] MEDS: FAMOTIDINE 20 MG INJ IV SCH ×2 (08:55→21:09)
--- NOTE | 2018-12-03 09:37 | CONS ---
Assessment/Plan Assessment/Plan Assessment/Plan (Daily) Assessment and recommendations; 1. Patient status post abdominal surgery for sigmoid resection due to diverticulitis status post colostomy. 2. Status post respiratory failure. With stable pulmonary status. 3. Apparent persistent ileus. Patient maintained on TPN. Continue current supportive care. Further recommendations per general surgeon. Will sign off. Please reconsult if needed. Thanks for the referral. Consultation Date/Type/Reason Admit Date/Time Nov 29, 2018 at 08:13 Initial Consult Date 11/30/18 Type of Consult Pulmonary/critical care Patient is a 63-year-old lady who was admitted for elective laparoscopic sigmoid colon resection due to diverticulitis. Surgery was uneventful yesterday except for mild hypotensive episode, patient could not be extubated immediately postoperatively and was transferred to ICU intubated. By the time I saw her, patient already on CPAP mode and appears completely awake and alert. Patient has remained hemodynamically stable. She complains of minimal abdominal dis comfort and pain. Denies any shortness of breath. Any nausea. Past medical history; unremarkable Medications; reviewed Allergies; none Social history; noncontributory. Family history; she is , has a supportive . Occupational history; noncontributory. Review of systems; limited review of system could be obtained. Patient denies any chest pain, shortness of breath, coughing, complains of very mild abdominal pain and discomfort. Denies any nausea. General exam; elderly female, orally intubated, awake and alert. Currently in no distress. Date/Time of Note DATE: 12/03/18 TIME: 09:35 24 HR Interval Summary Free Text/Dictation Patient's condition is stable. Denies any shortness of breath, chest pain, coughing, wheezing. Complains of minimal abdominal pain. Denies any nausea or vomiting. General exam; elderly female, awake alert, currently no distress. On room air. Exam/Review of Systems Exam Vitals Vital Signs Date Temp Pulse Resp B/P (MAP) Pulse Ox O2 O2 Flow FiO2 Time Delivery Rate 12/03/18 79 08:01 12/03/18 98.8 19 134/62 97 07:53 (86) 12/03/18 Room Air 05:00 12/03/18 2.0 00:22 11/30/18 30 09:20 Intake and Output 4/12/02/18 12/03/18 1515:00 23:00 07:00 IntakeIntake Total 1000 ml 1000 ml 0 ml OutputOutput Total 80 ml 1500 ml 18 ml BalanceBalance 920 ml -500 ml -18 ml Exam H EENT exam; supple neck, no JVD. No lymphadenopathy. Midline trachea. No thyromegaly. Patient has good dentition. No neck masses. Chest exam; clear to auscultation. S1-S2 audible, no murmurs. Regular rhythm. Abdomen exam; soft, colostomy in place. Bowel sounds audible. Surgical scar is healing well. There is very minimal abdominal tenderness. Extremity exam; no peripheral edema or clubbing. CABLE PLACER exam; no focal deficit. Results Result Diagram: 12/03/18 0642 12/03/18 0642 Results 24hrs Laboratory Tests Test 12/02/18 13:05 12/03/18 06:42 Urine Color COLORLESS Urine Clarity CLEAR Urine pH 9.0 Urine Specific [place] 1.005 Urine Ketones NEGATIVE Urine Nitrite NEGATIVE Urine Bilirubin NEGATIVE Urine Urobilinogen NEGATIVE Urine Leukocyte Esterase NEGATIVE Urine Microscopic RBC 5 Urine Microscopic WBC 1 Urine Hemoglobin 1+ H Urine Glucose NEGATIVE Urine Total Protein NEGATIVE White Blood Count 3.6 #L Red Blood Count 3.49 L Hemoglobin 10.6 L Hematocrit 31.9 L Mean Corpuscular Volume 91.4 Mean Corpuscular Hemoglobin 30.4 Mean Corpuscular Hemoglobin Concent 33.2 Red Cell Distribution Width 12.3 Platelet Count 146 # Mean Platelet Volume 11.0 H Immature Granulocytes % 0.300 Neutrophils % 73.6 Lymphocytes % 12.6 L Monocytes % 8.8 Eosinophils % 4.4 Basophils % 0.3 Nucleated Red Blood Cells % 0.0 Immature Granulocytes # 0.010 Neutrophils # 2.7 Lymphocytes # 0.5 L Monocytes # 0.3 Eosinophils # 0.2 Basophils # 0.0 Nucleated Red Blood Cells # 0.0 Sodium Level 140 Potassium Level 4.5 Chloride Level 105 Carbon Dioxide Level 29 Anion Gap 6 Blood Urea Nitrogen 4 L Creatinine 0.63 Est Glomerular Filtrat Rate mL/min > 60 Glucose Level 109 Calcium Level 8.6 Phosphorus Level 1.9 L Magnesium Level 2.2 Medications Medication Current Medications Hydromorphone HCl (Dilaudid) 0.5 mg Q2H PRN IV PAIN LEVEL 1-5 Last administered on 12/02/18at 17:39; Admin Dose 0.5 MG; Start 11/29/18 at 19:00 Ondansetron HCl (Zofran Inj) 4 mg Q6H PRN IV NAUSEA AND/OR VOMITING Last administered on 12/02/18 13:05; Admin Dose 4 MG; Start 11/29/18 at 19:00 Potassium Chloride/Dextrose/ Sod Cl 1,000 ml @ 100 mls/hr Q10H IV Last administered on 12/03/18 05:11; Admin Dose 100 MLS/HR; Start 11/29/18 at 18:56 Hydromorphone HCl (Dilaudid) 1 mg Q2H PRN IV pain 6-10 Last administered on 12/01/18 22:17; Admin Dose 1 MG; Start 11/29/18 at 19:00 Levothyroxine Sodium (Synthroid Iv) 37.5 mcg DAILY@06 IV Last administered on 12/03/18 05:12; Admin Dose 37.5 MCG; Start 11/30/18 at 06:00 Meropenem/Sodium Chloride 50 ml @ 100 mls/hr Q8 IVPB Last administered on 12/03/18 05:25; Admin Dose 100 MLS/HR; Start 11/29/18 at 23:00 Famotidine (Pepcid Iv) 20 mg BID IV Last administered on 12/03/18 08:55; Admin Dose 20 MG; Start 12/01/18 at 21:00 Metoclopramide HCl (Reglan) 10 mg Q6H PRN IV nausea Last administered on 9at 17:38; Admin Dose 10 MG; Start 12/02/18 at 09:30 ROCKY MARTIN Dec 03, 2018 09:37
--- NOTE | 2018-12-03 15:49 | PN ---
Date/Time of Note Date/Time of Note DATE: 12/03/18 TIME: 15:46 Assessment/Plan Lines/Catheters IV Catheter Type (from [facility]): Peripheral IV Frye in Place (from [facility]): Yes Assessment/Plan Chief Complaint/Hosp Course 1. 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 ? Etiology (DDx: infection (persistent diverticulitis vs other), vs hypovolemia, vs electrolyte imbalance; Improved; + flatus -supportive -Close monitoring -IS -ambulate -ice pack to abdominal wall -Clear liquids only 2. Lactic acidosis, ? etiology; normalized; bandemia improved -as above 3. Anemia, ? dilutional vs bleeding. CT A C/A/P without active bleeding. Drain serosang -close monitoring -Transfuse as needed 4. Diffuse bowel edema on CT ? fluid overload vs hypotensive intraop episode vs other 5. Hypoalbuminemia multifactorial -monitor and eventual diet optimization 6. Need for mechanical ventilation postoperatively since wasnt breathing sufficiently, improved and extubated; currently on room air>resolved 7. Hypothyroid -meds 8. Thrombocytopenia -monitor 9. Hypocalcemia: Likely multifactorial -Eventual nutrition optimization -Replete as needed and monitor Thank you. Patient seen and examined in collaboration with Dr. Maxi Ortiz. Subjective 24 Hr Interval Summary Feels much improved. + Flatus. Min temp. No abdominal pain at present. ANTONIETTA drain improved. No fevers, chills, sob, congested cough, cp, palpitations, martinez, dizziness, nausea, vomiting, diarrhea, dysuria. Exam/Review of Systems Vital Signs Vitals Vital Signs Date Temp Pulse Resp B/P (MAP) Pulse Ox O2 O2 Flow FiO2 Time Delivery Rate 12/03/18 98.2 77 18 131/60 96 15:09 (83) 12/03/18 Room Air 05:00 12/03/18 2.0 00:22 11/30/18 30 09:20 Intake and Output 12/02/18 12/02/18 12/03/18 1414:59 22:59 06:59 IntakeIntake Total 1000 ml 1000 ml 0 ml OutputOutput Total 80 ml 1500 ml 18 ml BalanceBalance 920 ml -500 ml -18 ml Exam Free Text/Dictation Constitutional: alert, oriented; No distress Psych: anxiety improved; No confusion Head: normocephalic, atraumatic Eyes: nl conjunctiva, EOMI, PERRL; No icteric ENMT: nl external ears & nose, nl lips & teeth, mucosa pink and moist; Neck: supple, non-tender, jvd (min); right IJ Respiratory: normal air movement; No congested cough, No labored breathing, No wheezing Cardiovascular: regular rate and rhythm; No edema Gastrointestinal: soft, distended (min), nontender; incision sites dry without drainage/bruising/discoloration; ANTONIETTA: Serous sanguinous No rebound or guarding Musculoskeletal: nl extremities to inspection; No joint tenderness Extremities: normal pulses; No calf tenderness, No cyanosis Neurological: nl mental status, nl speech, nl strength Skin: nl turgor, No rash or lesions, No diaphoresis Lymph: nl lymph nodes Results Result Diagram: 12/03/18 0642 12/03/18 0642 VALARIE BOWER NP Dec 03, 2018 15:49
--- NOTE | 2018-12-03 16:27 | PN ---
Date/Time of Note Date/Time of Note DATE: 12/03/18 TIME: 16:25 Assessment/Plan VTE Prophylaxis Risk score (from Ns)>0 risk: 4 SCD applied (from Ns): Yes Pharmacological prophylaxis: NA/contraindicated Pharm contraindication: surgical contra Lines/Catheters IV Catheter Type (from [facility]): Peripheral IV Urinary Cath still in place: Yes Reason Cath still needed: other (indicate) (postop) Assessment/Plan Assessment/Plan 63 yo woman with history of hypothyroidism and recurrent diverticulitis admitted after scheduled sigmoid colectomy. 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 Please see operative report for full operative details. - CT of the chest abdomen and pelvis postop shows signs of gastritis/colitis. Mild pneumoperitoneum which is expected. - Patient did receive intraoperative fluids and calcium given patient's hypotension, now normotensive off pressors. - Currently on postoperative meropenem. - Clear liquids started! Diet advancement per surgery # acute ventilatory dependent respiratory failure - resolved - Patient was lethargic postop was not able to be extubated. - Now awake breathing well; extubated postop day 1. # Bandemia - resolved - Expected stress response after major surgery - Febrile postop day 1 to 101.4. May be due to atelectasis. - Currently on postoperative antibiotics. # normocytic anemia: No signs of any overt intraoperative bleeding. Will monitor CBC closely. # DVT GI prophylaxis: SCDs, Protonix Result Diagram: 12/03/18 0642 12/03/18 0642 Subjective 24 Hr Interval Summary Free Text/Dictation Patient doing well. Nausea has resolved, no reglan or zofran at all today. Walking short distances with assistance. Passing flatus and small bowel movement. Pain adequately controlled. Exam/Review of Systems Exam Vitals Vital Signs Date Temp Pulse Resp B/P (MAP) Pulse Ox O2 O2 Flow FiO2 Time Delivery Rate 12/03/18 98.2 77 18 131/60 96 15:09 (83) 12/03/18 Room Air 05:00 12/03/18 2.0 00:22 11/30/18 30 09:20 Intake and Output 12/02/18 12/02/18 12/03/18 1515:00 23:00 07:00 IntakeIntake Total 1000 ml 1000 ml 0 ml OutputOutput Total 80 ml 1500 ml 18 ml BalanceBalance 920 ml -500 ml -18 ml Exam General: Frail appearing woman in no acute distress. HEENT: Atraumatic, normocephalic. The pupils are equal, round and reactive to light. Neck: Supple with full range of motion. No rigidity or meningismus Chest: Nontender Lungs: Clear to auscultation bilaterally, diminished lower lung sounds. Heart: Normal S1-S2, Regular rhythm and rate. No murmur, S3, or S4 Abdomen: Midline lap incisions clean and dry. Tender to moderate palpation. Nondistended. Extremities: Normal to inspection, no edema no cyanosis Results Results 24hrs Laboratory Tests Test 12/03/18 06:42 White Blood Count 3.6 #L Red Blood Count 3.49 L Hemoglobin 10.6 L Hematocrit 31.9 L Mean Corpuscular Volume 91.4 Mean Corpuscular Hemoglobin 30.4 Mean Corpuscular Hemoglobin Concent 33.2 Red Cell Distribution Width 12.3 Platelet Count 146 # Mean Platelet Volume 11.0 H Immature Granulocytes % 0.300 Neutrophils % 73.6 Lymphocytes % 12.6 L Monocytes % 8.8 Eosinophils % 4.4 Basophils % 0.3 Nucleated Red Blood Cells % 0.0 Immature Granulocytes # 0.010 Neutrophils # 2.7 Lymphocytes # 0.5 L Monocytes # 0.3 Eosinophils # 0.2 Basophils # 0.0 Nucleated Red Blood Cells # 0.0 Sodium Level 140 Potassium Level 4.5 Chloride Level 105 Carbon Dioxide Level 29 Anion Gap 6 Blood Urea Nitrogen 4 L Creatinine 0.63 Est Glomerular Filtrat Rate mL/min > 60 Glucose Level 109 Calcium Level 8.6 Phosphorus Level 1.9 L Magnesium Level 2.2 Medications Medication Current Medications Hydromorphone HCl (Dilaudid) 0.5 mg Q2H PRN IV PAIN LEVEL 1-5 Last administered on 12/02/18at 17:39; Admin Dose 0.5 MG; Start 11/29/18 at 19:00 Ondansetron HCl (Zofran Inj) 4 mg Q6H PRN IV NAUSEA AND/OR VOMITING Last ad ministered on 12/02/18at 13:05; Admin Dose 4 MG; Start 11/29/18 at 19:00 Potassium Chloride/Dextrose/ Sod Cl 1,000 ml @ 100 mls/hr Q10H IV Last administered on 12/03/18 05:11; Admin Dose 100 MLS/HR; Start 11/29/18 at 18:56 Hydromorphone HCl (Dilaudid) 1 mg Q2H PRN IV pain 6-10 Last administered on 12/01/18 22:17; Admin Dose 1 MG; Start 11/29/18 at 19:00 Levothyroxine Sodium (Synthroid Iv) 37.5 mcg DAILY@06 IV Last administered on 12/03/18 05:12; Admin Dose 37.5 MCG; Start 11/30/18 at 06:00 Meropenem/Sodium Chloride 50 ml @ 100 mls/hr Q8 IVPB Last administered on 12/03/18 13:20; Admin Dose 100 MLS/HR; Start 11/29/18 at 23:00 Famotidine (Pepcid Iv) 20 mg BID IV Last administered on 12/03/18 08:55; Admin Dose 20 MG; Start 12/01/18 at 21:00 Metoclopramide HCl (Reglan) 10 mg Q6H PRN IV nausea Last administered on 12/02/18at 17:38; Admin Dose 10 MG; Start 12/02/18 at 09:30 LAURA SWANSON MD Dec 03, 2018 16:27
[2018-12-04] VITALS (10 sets, daily range): BP systolic 106–122; BP diastolic 54–62; PULSE 69–161; RESP 18–20
[2018-12-04] MEDS: LEVOTHYROXINE 100 MCG VIAL IV SCH (06:25)
[2018-12-04] MEDS: MEROPENEM 1 GM/50ML(PMX) 50 ML IVPB SCH (06:26)
[2018-12-04] MEDS: ACETAMINOPHEN 325 MG TAB PO PRN ×3 (07:44→19:43)
[2018-12-04] MEDS: D5W-0.45 NACL + KCL 20 MEQ 1,000 ML IV SCH ×2 (07:46→17:49)
[2018-12-04] MEDS: FAMOTIDINE 20 MG INJ IV SCH ×2 (10:22→21:03)
--- NOTE | 2018-12-04 10:23 | PN ---
Date/Time of Note Date/Time of Note DATE: 12/04/18 TIME: 10:18 Assessment/Plan Lines/Catheters IV Catheter Type (from [facility]): Peripheral IV Frye in Place (from [facility]): No Assessment/Plan Chief Complaint/Hosp Course 1. 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 ? Etiology (DDx: infection (persistent diverticulitis vs other), vs hypovolemia, vs electrolyte imbalance; Improved; + bowel function; tolerated clears -supportive -Close monitoring -IS -ambulate -ice pack to abdominal wall -Full liquids advance to soft as tolerated 2. Lactic acidosis, ? etiology; normalized; bandemia resolved -as above 3. Anemia, ? dilutional vs bleeding. CT A C/A/P without active bleeding. Drain serosang -close monitoring -Transfuse as needed 4. Diffuse bowel edema on CT ? fluid overload vs hypotensive intraop episode vs other 5. Hypoalbuminemia multifactorial -monitor and eventual diet optimization 6. Need for mechanical ventilation postoperatively since wasnt breathing sufficiently, improved and extubated; currently on room air>resolved 7. Hypothyroid -meds 8. Thrombocytopenia: Resolved -monitor 9. Hypocalcemia: Likely multifactorial -Eventual nutrition optimization -Replete as needed and monitor Thank you. Patient seen and examined in collaboration with Dr. Maxi Ortiz. Subjective 24 Hr Interval Summary Feels well. + Bowel function. Tolerating clear liquids. No fevers, chills, sob, congested cough, cp, palpitations, martinez, dizziness, nausea, vomiting, diarrhea, dysuria. Exam/Review of Systems Vital Signs Vitals Vital Signs Date Temp Pulse Resp B/P (MAP) Pulse Ox O2 O2 Flow FiO2 Time Delivery Rate 12/04/18 74 08:01 12/04/18 98.6 19 118/62 96 07:19 (80) 12/03/18 Room Air 20:00 12/03/18 2.0 00:22 11/30/18 30 09:20 Intake and Output 12/03/18 12/03/18 12/04/18 1414:59 22:59 06:59 IntakeIntake Total 50 ml 1150 ml 800 ml OutputOutput Total 105 ml 100 ml BalanceBalance 50 ml 1045 ml 700 ml Exam Free Text/Dictation Constitutional: alert, oriented; No distress Psych: anxiety improved; No confusion Head: normocephalic, atraumatic Eyes: nl conjunctiva, EOMI, PERRL; No icteric ENMT: nl external ears & nose, nl lips & teeth, mucosa pink and moist; Neck: supple, non-tender, Respiratory: normal air movement; No congested cough, No labored breathing, No wheezing Cardiovascular: regular rate and rhythm; No edema Gastrointestinal: soft, distended (min), nontender; incision sites dry without drainage/bruising/discoloration; ANTONIETTA: Serosanguinous No rebound or guarding Musculoskeletal: nl extremities to inspection; No joint tenderness Extremities: normal pulses; No calf tenderness, No cyanosis Neurological: nl mental status, nl speech, nl strength Skin: nl turgor, No rash or lesions, No diaphoresis Lymph: nl lymph nodes Results Result Diagram: 12/04/18 0721 12/04/18 0721 VALARIE BOWER NP Dec 04, 2018 10:23
--- NOTE | 2018-12-04 11:01 | PN ---
Date/Time of Note Date/Time of Note DATE: 12/04/18 TIME: 11:00 Assessment/Plan VTE Prophylaxis Risk score (from Ns)>0 risk: 4 [place] [facility] Yes Pharmacological prophylaxis: NA/contraindicated Pharm contraindication: low risk/ambulating Lines/Catheters IV Catheter Type (from [facility]): Peripheral IV Urinary Cath still in place: No Assessment/Plan Assessment/Plan 63 yo woman with history of hypothyroidism and recurrent diverticulitis admitted after scheduled sigmoid colectomy. 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 Please see operative report for full operative details. - CT of the chest abdomen and pelvis postop shows signs of gastritis/colitis. Mild pneumoperitoneum which is expected. - Patient did receive intraoperative fluids and calcium given patient's hypotens ion, now normotensive off pressors. - Currently on postoperative meropenem. - Tolerating clear liquids. Diet advancement per surgery # acute ventilatory dependent respiratory failure - resolved - Patient was lethargic postop was not able to be extubated. - Now awake breathing well; extubated postop day 1. # Bandemia - resolved - Expected stress response after major surgery - Febrile postop day 1 to 101.4. May be due to atelectasis. - Currently on postoperative antibiotics. # normocytic anemia: Hgb now rising postoperatively as expected. # DVT GI prophylaxis: SCDs, Protonix Result Diagram: 12/04/18 0721 12/04/18 0721 Subjective 24 Hr Interval Summary Free Text/Dictation Patient doing very well today. Up at sink putting in eye drops. Tolerating clear liquids; advance to full liquids today. Exam/Review of Systems Exam Vitals Vital Signs Date Temp Pulse Resp B/P (MAP) Pulse Ox O2 O2 Flow FiO2 Time Delivery Rate 12/04/18 74 08:01 12/04/18 98.6 19 118/62 96 07:19 (80) 12/03/18 Room Air 20:00 12/03/18 2.0 00:22 11/30/18 30 09:20 Intake and Output 12/03/18 12/03/18 12/04/18 1515:00 23:00 07:00 IntakeIntake Total 50 ml 1150 ml 800 ml OutputOutput Total 105 ml 100 ml BalanceBalance 50 ml 1045 ml 700 ml Exam General: Frail appearing woman in no acute distress. HEENT: Atraumatic, normocephalic. The pupils are equal, round and reactive to light. Neck: Supple with full range of motion. No rigidity or meningismus Chest: Nontender Lungs: Clear to auscultation bilaterally, diminished lower lung sounds. Heart: Normal S1-S2, Regular rhythm and rate. No murmur, S3, or S4 Abdomen: Midline lap incisions clean and dry. Tender to moderate palpation. Nondistended. Extremities: Normal to inspection, no edema no cyanosis Results Results 24hrs Laboratory Tests Test 12/04/18 07:21 White Blood Count 3.8 L Red Blood Count 3.82 L Hemoglobin 11.4 L Hematocrit 34.6 L Mean Corpuscular Volume 90.6 Mean Corpuscular Hemoglobin 29.8 Mean Corpuscular Hemoglobin Concent 32.9 Red Cell Distribution Width 12.2 Platelet Count 206 # Mean Platelet Volume 10.3 Immature Granulocytes % 0.300 Neutrophils % 64.7 Lymphocytes % 16.2 Monocytes % 12.8 H Eosinophils % 5.5 Basophils % 0.5 Nucleated Red Blood Cells % 0.0 Immature Granulocytes # 0.010 Neutrophils # 2.5 Lymphocytes # 0.6 L Monocytes # 0.5 Eosinophils # 0.2 Basophils # 0.0 Nucleated Red Blood Cells # 0.0 Sodium Level 139 Potassium Level 4.1 Chloride Level 103 Carbon Dioxide Level 27 Anion Gap 9 Blood Urea Nitrogen 4 L Creatinine 0.54 Est Glomerular Filtrat Rate mL/min > 60 Glucose Level 119 Calcium Level 8.7 Medications Medication Current Medications Hydromorphone HCl (Dilaudid) 0.5 mg Q2H PRN IV PAIN LEVEL 1-5 Last administered on 12/02/18at 17:39; Admin Dose 0.5 MG; Start 11/29/18 at 19:00 Ondansetron HCl (Zofran Inj) 4 mg Q6H PRN IV NAUSEA AND/OR VOMITING Last administered on 12/02/18at 13:05; Admin Dose 4 MG; Start 11/29/18 at 19:00 Potassium Chloride/Dextrose/ Sod Cl 1,000 ml @ 100 mls/hr Q10H IV Last administered on 12/04/18at 07:46; Admin Dose 100 MLS/HR; Start 11/29/18 at 18:56 Hydromorphone HCl (Dilaudid) 1 mg Q2H PRN IV pain 6-10 Last administered on 12/01/18 22:17; Admin Dose 1 MG; Start 11/29/18 at 19:00 Levothyroxine Sodium (Synthroid Iv) 37.5 mcg DAILY@06 IV Last administered on 12/04/18 06:25; Admin Dose 37.5 MCG; Start 11/30/18 at 06:00 Meropenem/Sodium Chloride 50 ml @ 100 mls/hr Q8 IVPB Last administered on 12/04/18 06:26; Admin Dose 100 MLS/HR; Start 11/29/18 at 23:00 Famotidine (Pepcid Iv) 20 mg BID IV Last administered on 12/04/18 10:22; Admin Dose 20 MG; Start 12/01/18 at 21:00 Metoclopramide HCl (Reglan) 10 mg Q6H PRN IV nausea Last administered on 12/02/18at 17:38; Admin Dose 10 MG; Start 12/02/18 at 09:30 Acetaminophen (Tylenol Tab) 650 mg Q6H PRN PO MILD PAIN(1-3)OR ELEVATED TEMP Last administered on 12/04/18at 07:44; Admin Dose 650 MG; Start 12/04/18 at 07:00 LAURA SWANSON MD Dec 04, 2018 11:01
[2018-12-05] VITALS (11 sets, daily range): BP systolic 103–126; BP diastolic 57–70; PULSE 65–91; RESP 18–20
[2018-12-05] MEDS: ACETAMINOPHEN 325 MG TAB PO PRN ×3 (01:18→19:46)
[2018-12-05] MEDS: D5W-0.45 NACL + KCL 20 MEQ 1,000 ML IV SCH ×3 (03:41→15:10)
[2018-12-05] MEDS: LEVOTHYROXINE 100 MCG VIAL IV SCH (06:41)
[2018-12-05] MEDS: FAMOTIDINE 20 MG INJ IV SCH (08:28)
--- NOTE | 2018-12-05 12:26 | PN ---
Date/Time of Note Date/Time of Note DATE: 12/05/18 TIME: 12:21 Assessment/Plan VTE Prophylaxis Risk score (from Ns)>0 risk: 4 SCD applied (from Ns): No SCD contraindicated: other Pharmacological prophylaxis: NA/contraindicated Pharm contraindication: surgical contra Lines/Catheters IV C[facility]ter Type (from [facility]): Peripheral IV Urinary Cath still in place: No Assessment/Plan Hospital Course S: Patient presently handling advancement of diet, no acute events overnight. Asking if she can shower. O: VS -see below Physical exam: General: Sitting in chair, at bedside, no acute distress. HEENT: Atraumatic, normocephalic. The pupils are equal, round and reactive to light. Neck: Supple with full range of motion. No rigidity or meningismus Chest: Nontender Lungs: Clear to auscultation bilaterally, diminished lower lung sounds. Heart: Normal S1-S2, Regular rhythm and rate. No murmur, S3, or S4 Abdomen: Midline lap incisions clean and dry. Less tender to palpation, nondistended, ANTONIETTA drain noted. Extremities: Normal to inspection, no edema no cyanosis Assessment/Plan: 63 yo woman with history of hypothyroidism and recurrent diverticulitis admitted after scheduled sigmoid colectomy. 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 Please see operative report for full operative details- CT of the chest abdomen and pelvis postop showed signs of gastritis/colitis. Mild pneumoperitoneum which is expected- Patient did receive intraoperative fluids and calcium given patient's hypotension, now normotensive off pressors-off antibiotics now- Tolerating present diet. -Monitor, continue diet advancement per surgery # acute ventilatory dependent respiratory failure - resolved- Patient was lethargic postop was not able to be extubated.- Now awake breathing well -Monitor # Bandemia - resolved - Expected stress response after major surgery- Febrile postop day 1 to 101.4. May have been due to atelectasis. Again completed antibiotic therapy -Monitor for now # normocytic anemia: Hgb now rising postoperatively as expected. However iron levels are low, but MCV is normal -We will order for IV iron x1 now #Hypothyroidism: Interestingly, do not have records of any thyroid labs are panel being checked, the patient has been on low-dose IV levothyroxine 37.5 mcg since admission -Since patient was taking p.o. levothyroxine 75 mcg at home, will reinitiate this now but also will order for thyroid panel just to check baseline status at this point. # DVT GI prophylaxis: SCDs, Protonix Dispo: Likely home in the next 24 hours if cleared by surgery team Result Diagram: 12/05/18 0615 12/05/18 0615 Results 24hrs Laboratory Tests Test 12/05/18 06:15 White Blood Count 4.2 L Red Blood Count 3.76 L Hemoglobin 11.1 L Hematocrit 33.6 L Mean Corpuscular Volume 89.4 Mean Corpuscular Hemoglobin 29.5 Mean Corpuscular Hemoglobin Concent 33.0 Red Cell Distribution Width 12.5 Platelet Count 216 Mean Platelet Volume 10.3 Immature Granulocytes % 0.200 Neutrophils % 62.0 Lymphocytes % 18.5 Monocytes % 10.8 Eosinophils % 7.5 H Basophils % 1.0 Nucleated Red Blood Cells % 0.0 Immature Granulocytes # 0.010 Neutrophils # 2.6 Lymphocytes # 0.8 Monocytes # 0.5 Eosinophils # 0.3 Basophils # 0.0 Nucleated Red Blood Cells # 0.0 Sodium Level 139 Potassium Level 4.3 Chloride Level 105 Carbon Dioxide Level 26 Anion Gap 8 Blood Urea Nitrogen 4 L Creatinine 0.53 Est Glomerular Filtrat Rate mL/min > 60 Glucose Level 106 Calcium Level 8.7 Phosphorus Level 3.5 Magnesium Level 2.3 Iron Level < 10 L Total Iron Binding Capacity 220 L Percent Iron Saturation Ferritin 108.0 Exam/Review of Systems Exam Vitals Vital Signs Date Temp Pulse Resp B/P (MAP) Pulse Ox O2 O2 Flow FiO2 Time Delivery Rate 12/05/18 98.9 85 20 104/61 97 Room Air 11:28 (75) 12/03/18 2.0 00:22 Intake and Output 12/04/18 12/04/18 12/05/18 1515:00 23:00 07:00 IntakeIntake Total 800 ml 1500 ml OutputOutput Total 60 ml 60 ml BalanceBalance -60 ml 800 ml 1440 ml Results Results 24hrs Laboratory Tests Test 12/05/18 06:15 White Blood Count 4.2 L Red Blood Count 3.76 L Hemoglobin 11.1 L Hematocrit 33.6 L Mean Corpuscular Volume 89.4 Mean Corpuscular Hemoglobin 29.5 Mean Corpuscular Hemoglobin Concent 33.0 Red Cell Distribution Width 12.5 Platelet Count 216 Mean Platelet Volume 10.3 Immature Granulocytes % 0.200 Neutrophils % 62.0 Lymphocytes % 18.5 Monocytes % 10.8 Eosinophils % 7.5 H Basophils % 1.0 Nucleated Red Blood Cells % 0.0 Immature Granulocytes # 0.010 Neutrophils # 2.6 Lymphocytes # 0.8 Monocytes # 0.5 Eosinophils # 0.3 Basophils # 0.0 Nucleated Red Blood Cells # 0.0 Sodium Level 139 Potassium Level 4.3 Chloride Level 105 Carbon Dioxide Level 26 Anion Gap 8 Blood Urea Nitrogen 4 L Creatinine 0.53 Est Glomerular Filtrat Rate mL/min > 60 Glucose Level 106 Calcium Level 8.7 Phosphorus Level 3.5 Magnesium Level 2.3 Iron Level < 10 L Total Iron Binding Capacity 220 L Percent Iron Saturation Ferritin 108.0 Medications Medication Current Medications Hydromorphone HCl (Dilaudid) 0.5 mg Q2H PRN IV PAIN LEVEL 1-5 Last administered on 12/02/18 17:39; Admin Dose 0.5 MG; Start 11/29/18 at 19:00 Ondansetron HCl (Zofran Inj) 4 mg Q6H PRN IV NAUSEA AND/OR VOMITING Last administered on 12/02/18 13:05; Admin Dose 4 MG; Start 11/29/18 at 19:00 Potassium Chloride/Dextrose/ Sod Cl 1,000 ml @ 100 mls/hr Q10H IV Last administered on 12/05/18 03:41; Admin Dose 100 MLS/HR; Start 11/29/18 at 18:56 Hydromorphone HCl (Dilaudid) 1 mg Q2H PRN IV pain 6-10 Last administered on 12/01/18at 22:17; Admin Dose 1 MG; Start 11/29/18 at 19:00 Metoclopramide HCl (Reglan) 10 mg Q6H PRN IV nausea Last administered on 12/02/18 17:38; Admin Dose 10 MG; Start 12/02/18 at 09:30 Acetaminophen (Tylenol Tab) 650 mg Q6H PRN PO MILD PAIN(1-3)OR ELEVATED TEMP Last administered on 12/05/18 08:27; Admin Dose 650 MG; Start 12/04/18 at 07:00 Ferric Sodium Gluconate Complex 125 mg/Sodium Chloride 100 ml @ 100 mls/hr ONCE ONCE IVPB ; Start 12/05/18 at 12:30; Stop 12/05/18 at 13:29; Status UNV Levothyroxine Sodium (Synthroid) 75 mcg BEFORE BREAKFAST PO ; Start 12/06/18 at 07:00; Status UNV Famotidine (Pepcid) 20 mg DAILY PO ; Start 12/06/18 at 09:00; Status UNV KATIE JOLLY Dec 05, 2018 12:26
--- NOTE | 2018-12-05 13:27 | PN ---
Date/Time of Note Date/Time of Note DATE: 12/05/18 TIME: 13:24 Assessment/Plan Lines/Catheters IV Catheter Type (from [facility]): Peripheral IV Frye in Place (from [facility]): No Assessment/Plan Chief Complaint/Hosp Course 1. 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 ? Etiology (DDx: infection (persistent diverticulitis with abscess) + hypovolemia +/- electrolyte imbalance; Improved; + min bowel function; tolerating diet -supportive -Close monitoring -IS -ambulate -ice pack to abdominal wall -diet -maintain drain 2. Lactic acidosis, ? etiology; normalized; bandemia resolved -as above 3. Anemia, ? dilutional vs bleeding. CT A C/A/P without active bleeding. Drain serosang -close monitoring -Transfuse as needed 4. Diffuse bowel edema on CT ? fluid overload vs hypotensive intraop episode vs other 5. Hypoalbuminemia multifactorial -monitor and eventual diet optimization 6. Need for mechanical ventilation postoperatively since wasnt breathing sufficiently, improved and extubated; currently on room air>resolved 7. Hypothyroid -meds 8. Thrombocytopenia: Resolved -monitor 9. Hypocalcemia: Likely multifactorial -Eventual nutrition optimization -Replete as needed and monitor Thank you, Subjective 24 Hr Interval Summary Feels well. + Min bowel function. Tolerating regular. No fevers, chills, sob, congested cough, cp, palpitations, martinez, dizziness, nausea, vomiting, diarrhea, dysuria. Exam/Review of Systems Vital Signs Vitals Vital Signs Date Temp Pulse Resp B/P (MAP) Pulse Ox O2 O2 Flow FiO2 Time Delivery Rate 12/05/18 86 12:01 12/05/18 98.9 20 104/61 97 Room Air 11:28 (75) 12/03/18 2.0 00:22 Intake and Output 12/04/18 12/04/18 12/05/18 1414:59 22:59 06:59 IntakeIntake Total 800 ml 1000 ml OutputOutput Total 60 ml 60 ml BalanceBalance -60 ml 800 ml 940 ml Exam Free Text/Dictation Constitutional: alert, oriented; No distress Psych: anxiety improved; No confusion Head: normocephalic, atraumatic Eyes: nl conjunctiva, EOMI, PERRL; No icteric ENMT: nl external ears & nose, nl lips & teeth, mucosa pink and moist; Neck: supple, non-tender, Respiratory: normal air movement; No congested cough, No labored breathing, No wheezing Cardiovascular: regular rate and rhythm; No edema Gastrointestinal: soft, ND, min tender; incision sites dry without drainage/bruising/discoloration; ANTONIETTA: Serosanguinous No rebound or guarding Musculoskeletal: nl extremities to inspection; No joint tenderness Extremities: normal pulses; No calf tenderness, No cyanosis Neurological: nl mental status, nl speech, nl strength Skin: nl turgor, No rash or lesions, No diaphoresis Lymph: nl lymph nodes Results Result Diagram: 12/05/18 0615 12/05/18 0615 SHEILA FLOYD MD Dec 05, 2018 13:27
[2018-12-05] MEDS ORDERED: SOD FERRIC GLUC COMPLX 125 MG in SOD CHLORIDE 0.9% 100 ML IVPB ONE (14:30)
[2018-12-06] VITALS (8 sets, daily range): BP systolic 94–131; BP diastolic 58–71; PULSE 65–95; RESP 19–22
[2018-12-06] MEDS: ACETAMINOPHEN 325 MG TAB PO PRN (06:02)
[2018-12-06] MEDS ORDERED: LEVOTHYROXINE 75 MCG TAB PO SCH (07:00)
[2018-12-06] MEDS ORDERED: FAMOTIDINE 20 MG TAB PO SCH (09:00)
--- NOTE | 2018-12-06 13:04 | PDOCDIS ---
Discharge Instructions CONDITION [id number] Patient Condition: [id number] Stable HOME CARE INSTRUCTIONS: [id number] Diet Instructions: [id number] Low Fat /Cholesterol ACTIVITY: [id number] Activity Restrictions: [id number] Slowly Increase Activity Rest between Activity Avoid heavy lifting FOLLOW UP/APPOINTMENTS Follow-up Plan Please take your medications as prescribed and follow-up with the surgeon in the office in the next 3-5 days unless otherwise indicated. Please also follow-up with your regular doctor in the clinic in the next 1-2 weeks. KATIE JOLLY Dec 06, 2018 13:04
[2018-12-06] MEDS ORDERED: HYDR-4011 PO (13:05)
[2018-12-06] MEDS ORDERED: ONDA4TAB13 PO (13:05)
--- NOTE | 2018-12-06 13:14 | DS ---
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 Please see operative report for full operative details- CT of the chest abdomen and pelvis postop showed signs of gastritis/colitis. Mild pneumoperitoneum which is expected- Patient did receive intraoperative fluids and calcium given patient's hypotension, now normotensive off pressors-off antibiotics now- Tolerating present diet. -Monitor, continue diet advancement per surgery # acute ventilatory dependent respiratory failure - resolved- Patient was lethargic postop was not able to be extubated.- Now awake breathing well -Monitor # Bandemia - resolved - Expected stress response after major surgery- Febrile postop day 1 to 101.4. May have been due to atelectasis. Again completed antibiotic therapy -Monitor for now # normocytic anemia: Hgb now rising postoperatively as expected. However iron levels are low, but MCV is normal -We will order for IV iron x1 now #Hypothyroidism: Interestingly, do not have records of any thyroid labs are panel being checked, the patient has been on low-dose IV levothyroxine 37.5 mcg since admission -Since patient was taking p.o. levothyroxine 75 mcg at home, will reinitiate this now but also will order for thyroid panel just to check baseline status at this point. Patient Condition: Stable Procedures A. Date/Time of Note Date/Time of Note DATE: 11/29/18 TIME: 19:24 Operative Report Free Text/Dictation Preoperative Diagnosis 1. 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 Intraoperative hypotension and decreased urine output Operation/Procedure Performed 1. Laparoscopic sigmoid colectomy 2. Laparoscopic splenic mobilization 3. Laparoscopic retroperitoneal exploration 4. Rigid sigmoidoscopy 5. Esophagogastroduodenoscopy 6. Local anesthetic injection, [id number] 7. Laparoscopic guided bilateral transversus abdominis plane block B. Date/Time of Note Date/Time of Note DATE: 11/29/18 TIME: 20:25 Operative Report Free Text/Dictation Preoperative Diagnosis: Need for central venous access for IV access and better monitor Postoperative Diagnosis: Need for central venous access for IV access and better monitoring Operation Performed: 1. Right internal jugular central venous catheter insertion 2. Local anesthetic injection, [id number] 3. Ultrasound guidance and interpretation Hx of Present Illness 63-year-old female who was brought in on an elective basis to have a laparosc opic sigmoid colectomy given her history of sigmoid stricture secondary to recurrent diverticulitis. Patient was taken to the operating room by the general surgeon Dr. Ortiz and had a laparoscopic sigmoid colectomy, laparoscopic splenic mobilization, laparoscopic retroperitoneal exploration, esophageal gastroduodenoscopy. Please see the operative report for full details. During the procedure the patient was noted to be hypotensive and had decreased urine output. Patient did receive intraoperative fluids as well as calcium. Exploration during the surgery did not show any signs of major bleeding. Again please see the report for further details. Patient currently remains intubated postoperatively. She does have a central line. She has produced approximately 300 cc of dilute urine postoperatively. She is currently on cefazolin as well as metronidazole. Hospital Course Thus patient underwent a sigmoid colectomy shortly after admission as mentioned above. Afterwards she had a ANTONIETTA drain in place. She was continued to be seen during her hospital stay by general surgery team, also seen by pulmonary team as well. There was concern of postop infection and patient was started on broad- spectrum antibiotics given the fevers and hypotension, however leukocytosis has resolved now and blood pressure stable now, patient presently off antibiotics. Over the course of her hospital stay drainage was monitored from the ANTONIETTA drain as well. She did receive 1 dose of IV iron as well for low iron levels, but hemoglobin was stable. Also was continued on her thyroid medications as well, and thyroid panel was checked with normal free T4 and TSH levels noted. The patient was able to ambulate, eventually able to have bowel movement and tolera cat diet. Once we get clearance from surgery team for discharge home, if that occurs today, patient will then be discharged home in improved condition. See below for full list of discharge medications. Home Meds Active Scripts Ondansetron Hcl* (Zofran*) 4 Mg Tab, 4 MG PO Q6H PRN for NAUSEA AND OR VOMITING, #15 TAB Prov:KATIE JOLLY 12/06/18 Reported Medications Levothyroxine Sodium* (Levothyroxine Sodium*) 75 Mcg Tablet, 75 MCG PO BEFORE BREAKFAST, #30 TAB 07/13/18 Discontinued Reported Medications Biotin (Biotin) 5,000 Mcg Tab.rapdis, 5000 MCG PO DAILY 08/01/18 Discontinued Scripts Sennosides* (Senna Lax*) 8.6 Mg Tablet, 1 TAB PO DAILY, #60 TAB Prov:THAO COLONColby 08/05/18 Docusate Sodium (Dok) 100 Mg Capsule, 100 MG PO DAILY, #60 CAP Prov:MICHAEL COLON 08/05/18 Follow-up Plan Please take your medications as prescribed and follow-up with the surgeon in the office in the next 3-5 days unless otherwise indicated. Please also follow-up with your regular doctor in the clinic in the next 1-2 weeks. Primary Care Provider Not On Staff Doctor Time spent on discharge: > 30 minutes KATIE JOLLY Dec 06, 2018 13:14
--- NOTE | 2018-12-06 15:15 | CONS ---
Consult Date/Type/Reason Admit Date/Time Nov 29, 2018 at 08:13 Initial Consult Date 11/30/18 Type of Consult Pulmonary Date/Time of Note DATE: 12/06/18 TIME: 15:15 Subjective Doing well. Denies shortness of breath. Ambulating without difficulty. Tolerating p.o. diet. Objective Vital Signs Date Temp Pulse Resp B/P (MAP) Pulse Ox O2 O2 Flow FiO2 Time Delivery Rate 12/06/18 97.6 83 22 131/71 96 Room Air 2.0 12:24 (91) Intake and Output 12/05/18 12/05/18 12/06/18 1515:00 23:00 07:00 IntakeIntake Total 2300 ml 600 ml OutputOutput Total 65 ml 40 ml BalanceBalance 2235 ml 560 ml Exam GENERAL: VITAL SIGNS: per chart NECK: Supple. No JVD or lymphadenopathy. CARDIAC EXAM: S1, S2. No added sounds or murmurs. CHEST: clear bilaterally, No added sounds, rales or wheezes ABDOMEN: Soft, nontender. No guarding or rebound. No bowel sounds. EXTREMITIES: No cyanosis, clubbing or edema. NEUROLOGIC: Generalized weakness. No focal deficits. Vent Setting Ventilator Support Mode: CPAP, PS Fraction of Inspired Oxygen pe: 30 Positive End Expiratory Pressu: 5.0 Results/Medications Result Diagram: 12/05/1861412/05/18614 Medications Current Medications Hydromorphone HCl (Dilaudid) 0.5 mg Q2H PRN IV PAIN LEVEL 1-5 Last administered on 12/02/18at 17:39; Admin Dose 0.5 MG; Start 11/29/18 at 19:00 Ondansetron HCl (Zofran Inj) 4 mg Q6H PRN IV NAUSEA AND/OR VOMITING Last administered on 12/02/18at 13:05; Admin Dose 4 MG; Start 11/29/18 at 19:00 Metoclopramide HCl (Reglan) 10 mg Q6H PRN IV nausea Last administered on 12/02/18at 17:38; Admin Dose 10 MG; Start 12/02/18 at 09:30 Acetaminophen (Tylenol Tab) 650 mg Q6H PRN PO MILD PAIN(1-3)OR ELEVATED TEMP Last administered on 12/06/18at 06:02; Admin Dose 650 MG; Start 12/04/18 at 07:00 Levothyroxine Sodium (Synthroid) 75 mcg BEFORE BREAKFAST PO Last administered on 12/06/18at 06:02; Admin Dose 75 MCG; Start 12/06/18 at 07:00 Famotidine (Pepcid) 20 mg DAILY PO Last administered on 12/06/18at 08:27; Admin Dose 20 MG; Start 12/06/18 at 09:00 Assessment/Plan Hospital Course (Demo Recall) Assessment 1. 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 2. S/P resp failure now extubated. Plan 1. Continue surgical post op recs 2. IS 3. Pain control 4. DVT and GI prophylaxis. DC planning okay from pulmonary standpoint MARISOL PÉREZ MD, [facility] Dec 06, 2018 15:15
--- NOTE | 2018-12-06 16:13 | PN ---
Date/Time of Note Date/Time of Note DATE: 12/06/18 TIME: 16:11 Assessment/Plan Lines/Catheters IV Catheter Type (from [facility]): Saline Lock Frye in Place (from [facility]): No Assessment/Plan Chief Complaint/Hosp Course 1. 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 ? Etiology (DDx: infection (persistent diverticulitis vs other), vs hypovolemia, vs electrolyte imbalance; Improved; + bowel function; tolerated clears -supportive -Close monitoring -IS -ambulate -ice pack to abdominal wall -Soft diet -Okay for discharge from surgical standpoint. Patient may be discharged with drain, refusing home health nurse > to help care for drain and nursing to instruct has been on drain care. Patient to call for appointment in 1 week. 2. Lactic acidosis, ? etiology; normalized; bandemia resolved -as above 3. Anemia, ? dilutional vs bleeding. CT A C/A/P without active bleeding. Drain serosang -close monitoring -Transfuse as needed 4. Diffuse bowel edema on CT ? fluid overload vs hypotensive intraop episode vs other 5. Hypoalbuminemia multifactorial -monitor and eventual diet optimization 6. Need for mechanical ventilation postoperatively since wasnt breathing sufficiently, improved and extubated; currently on room air>resolved 7. Hypothyroid -meds 8. Thrombocytopenia: Resolved -monitor 9. Hypocalcemia: Likely multifactorial -Eventual nutrition optimization -Replete as needed and monitor Thank you. Patient seen and examined in collaboration with Dr. Maxi Ortiz. Subjective 24 Hr Interval Summary Feels well. Continues to have bowel function. Tolerating solid diet. No fevers, chills, sob, congested cough, cp, palpitations, martinez, dizziness, nausea, vomiting, diarrhea, dysuria. Exam/Review of Systems Vital Signs Vitals Vital Signs Date Temp Pulse Resp B/P (MAP) Pulse Ox O2 O2 Flow FiO2 Time Delivery Rate 12/06/18 97.6 86 22 126/68 96 Room Air 15:45 (87) 12/06/18 2.0 12:24 Intake and Output 12/05/18 12/05/18 12/06/18 1515:00 23:00 07:00 IntakeIntake Total 2300 ml 600 ml OutputOutput Total 65 ml 40 ml BalanceBalance 2235 ml 560 ml Exam Free Text/Dictation Constitutional: alert, oriented; No distress Psych: anxiety improved; No confusion Head: normocephalic, atraumatic Eyes: nl conjunctiva, EOMI, PERRL; No icteric ENMT: nl external ears & nose, nl lips & teeth, mucosa pink and moist; Neck: supple, non-tender, Respiratory: normal air movement; No congested cough, No labored breathing, No wheezing Cardiovascular: regular rate and rhythm; No edema Gastrointestinal: soft, ND, min tender; incision sites dry without drain age/bruising/discoloration; ANTONIETTA: Serosanguinous No rebound or guarding Musculoskeletal: nl extremities to inspection; No joint tenderness Extremities: normal pulses; No calf tenderness, No cyanosis Neurological: nl mental status, nl speech, nl strength Skin: nl turgor, No rash or lesions, No diaphoresis Lymph: nl lymph nodes Results Result Diagram: 12/05/18 0615 12/05/18 0615 VALARIE BOWER NP Dec 06, 2018 16:13
== END 2018-12-06 18:29 | disposition home health service (06) | DRG 330 ==
LOC: REC 08:13 → EDSTATUS 11:30 → ICU 18:45 → TEL 12-01 14:59
PROVIDERS: ADMIT Surgery; ATTEND Hospitalist
PROC: 0DJ08ZZ Inspection of Upper Intestinal Tract, Via Natural or Artificial Opening Endoscopic (ICD-10-PCS; 2018-11-29)
PROC: 0DJD8ZZ Inspection of Lower Intestinal Tract, Via Natural or Artificial Opening Endoscopic (ICD-10-PCS; 2018-11-29)
PROC: 02HV33Z Insertion of Infusion Device into Superior Vena Cava, Percutaneous Approach (ICD-10-PCS; 2018-11-29)
PROC: 0DTN4ZZ Resection of Sigmoid Colon, Percutaneous Endoscopic Approach (ICD-10-PCS; principal; 2018-11-29 11:30)
DX: K57.32 Diverticulitis of large intestine without perforation or abscess without bleeding (principal); E87.2 Acidosis; K56.600 Partial intestinal obstruction, unspecified as to cause; D69.6 Thrombocytopenia, unspecified; D64.9 Anemia, unspecified; E03.9 Hypothyroidism, unspecified; I95.89 Other hypotension; E83.51 Hypocalcemia; E88.09 Other disorders of plasma-protein metabolism, not elsewhere classified
CPT/HCPCS: 36600; 71045; 71275; 74177; 80048; 80053; 80076; 81001; 82150; 82728; 82803; 83540; 83605; 83690; 83735; 84100; 84439; 84443; 84484; 85014; 85018; 85025; 85049; 85378; 85610; 85670; 85730; 86850; 86900; 86901; 87081; 87086; 88307; 94002; 94003; 94770; C1751; C9113; J0690; J1170; J2001; J2185; J2250; J2274; J2370; J2405; J2765; J2795; J2916; J3475; J3480; J7030; J7050; J7120; P9045; P9047; Q9967; Q9968